=== PATIENT | female | born 1945 | race American Indian/Alaskan Native ===

== ENCOUNTER 2019-09-16 06:28 | Inpatient (IN) | payer MEDICARE ==
[~2019-09-16 06:28] MED LIST: hydrALAZINE 20 MG/1 ML INJ IV ONE
[2019-09-16] MEDS ORDERED: SODIUM CHLORIDE 0.9% 1000 ML 1,000 ML IV SCH (07:15)
[2019-09-16 07:25] LABS: Basophils # (Auto) 0.1 K/mm3 (0.0-0.1); Basophils % (Auto) 0.8 % (0.0-1.8); Eosinophils # (Auto) 0.2 K/mm3 (0.0-0.4); Eosinophils % (Auto) 3.1 % (0.0-4.3); Hematocrit 40.3 % (30.3-42.9); Hemoglobin 13.4 gm/dl (10.1-14.3); Lymphocytes # (Auto) 1.7 K/mm3 (1.2-5.4); Lymphocytes % (Auto) 27.8 % (13.4-35.0); Mean Corpuscular HGB Conc 33 % (30-34); Mean Corpuscular Volume 77 fl (79-97); Monocytes # (Auto) 0.5 K/mm3 (0.0-0.8); Monocytes % (Auto) 8.1 % (0.0-7.3); Platelet Count 155 K/mm3 (140-440); Red Blood Count 5.22 M/mm3 (3.65-5.03)
[2019-09-16 07:35] LABS: INR 0.94 (0.87-1.13)
[2019-09-16 07:36] LABS: Partial Thromboplastin Time 27.3 Sec. (24.2-36.6)
[2019-09-16 07:40] LABS: Calcium 9.3 mg/dL (8.4-10.2)
[2019-09-16] MEDS ORDERED: ceFAZolin/Water 2 GM/20 ML 2 GM/20 ML SYRINGE IV ONE (08:43)
[2019-09-16] MEDS ORDERED: propofoL 200 MG/20 ML VIAL IV ONE ×5 (08:51→08:59)
[2019-09-16] MEDS ORDERED: HYDROmorphone 1 MG/1 ML INJ ONE (08:51)
[2019-09-16] MEDS ORDERED: fentaNYL 100 MCG/2 ML INJ ONE (08:51)
--- NOTE | 2019-09-16 09:03 | Anesthesia Consultation ---
Anesthesia Consult and Med Hx Date of service: 09/16/19 - Airway Anesthetic Teeth Evaluation: Dentures (full upper and lower) ROM Head & Neck: Adequate Mental/Hyoid Distance: Adequate Mallampati Class: Class III Intubation Access Assessment: Possibly Difficult - Pulmonary Exam CTA: Yes - Cardiac Exam Cardiac Exam: RRR - Pre-Operative Health Status ASA Pre-Surgery Classification: ASA3 Proposed Anesthetic Plan: General - Pulmonary Hx Smoking: No Hx Respiratory Symptoms: No Hx Sleep Apnea: No (high JEN screen score) - Cardiovascular System Hx Hypertension: Yes (took antihypertensives this morning) Hx Coronary Artery Disease: Yes (medical management) Hx Heart Attack/AMI: No Hx Percutaneous Transluminal Coronary Angioplasty (PTCA): No Hx Cardia Arrhythmia: No - Central Nervous System CVA: No - Gastrointestinal Hx Gastroesophageal Reflux Disease: No - Endocrine Hx Renal Disease: Yes (CKD) Hx Liver Disease: No Hx Non-Insulin Dependent Diabetes: Yes Hx Thyroid Disease: No - Hematic Hx Anemia: No - Other Systems Hx Cancer: Yes (renal cell carcinoma) Hx Obesity: Yes (BMI 37) - Additional Comments Anesthesia Medical History Comments: No hx anesthetic complications. Off ASA x1.5 wks.
--- NOTE | 2019-09-16 09:03 | Anesthesia Day of Surgery ---
Anesthesia Day of Surgery - Day of Surgery Patient Examined: Yes Patient H&P Reviewed: Yes Patient is NPO: Yes Beta Blockers: Yes
[2019-09-16] MEDS ORDERED: DEXTROSE 5% IN WATER 0 ML IV ONE (09:26)
[2019-09-16] MEDS ORDERED: SODIUM CHLORIDE 0.9% 500 ML 500 ML ONE (09:28)
[2019-09-16] MEDS ORDERED: DEXTROSE 5% IN WATER 1,000 ML IV SCH (10:00)
[2019-09-16] MEDS ORDERED: SUGAMMADEX SODIUM 200 MG/2 ML VIAL IV ONE (12:14)
[2019-09-16] MEDS ORDERED: NALOXONE 0.4 MG/1 ML INJ IV PRN (12:27)
[2019-09-16] MEDS ORDERED: ACETAMINOPHEN 325 MG TAB PO PRN (12:27)
[2019-09-16] MEDS ORDERED: HYDROmorphone 1 MG/1 ML INJ IV PRN (12:27)
[2019-09-16] MEDS ORDERED: ONDANSETRON 4 MG/2 ML INJ IV PRN (12:27)
[2019-09-16] MEDS ORDERED: oxyCODONE /ACETAMINOPHEN 5-325MG TAB PO PRN (12:27)
--- NOTE | 2019-09-16 12:36 | Short Stay Summary ---
Short Stay Documentation Date of service: 09/16/19 Narrative H&P: 74-year-old female with history of coronary artery disease on medical management and chronic kidney disease with known left-sided solid renal mass consistent with left renal cell carcinoma. Scheduled for cryoablation. Risks, benefits, and alternatives discussed. Cardiology evaluation obtained prior to procedure. Will be performed prone with general anesthesia. - History Principal diagnosis: renal cell carcinoma H&P: obtained from office Past Medical History: CAD, cancer, diabetes, hypertension, renal failure (CKD) Social history: no significant social history - Allergies and Medications Current Medications: Allergies propoxyphene [From Darvon] Allergy (Verified 09/16/19 07:12) Vomiting Home Medications Medication Instructions Recorded Confirmed Last Taken Type Aspirin [Aspirin BABY CHEW TAB] 81 mg PO QDAY 09/16/19 09/16/19 1 Week Ago History ~09/09/19 Cholecalciferol (Vitamin D3) 1,000 unit PO QDAY 09/16/19 09/16/19 1 Week Ago History [Vitamin D3 2,000 UNIT CAP] ~09/09/19 Empagliflozin [Jardiance] 25 mg PO DAILY 09/16/19 09/16/19 09/16/19 History Ezetimibe [Zetia] 10 mg PO DAILY 09/16/19 09/16/19 09/15/19 History Ferrous Sulfate [Iron 325 MG] 325 mg PO DAILY 09/16/19 09/16/19 09/15/19 History Glimepiride [Amaryl] 4 mg PO DAILY 09/16/19 09/16/19 09/16/19 History ISOSORBIDE MONOnitrate [Imdur ER] 30 mg PO DAILY 09/16/19 09/16/19 09/16/19 History Losartan Potassium 100 mg PO DAILY 09/16/19 09/16/19 09/16/19 History Metoprolol Xl [Metoprolol 50 mg PO QDAY 09/16/19 09/16/19 09/15/19 History SUCCINATE ER TAB] Simvastatin 40 mg PO DAILY 09/16/19 09/16/19 09/15/19 History Sodium Bicarbonate 650 mg PO BID 09/16/19 09/16/19 09/15/19 History Triamterene/Hydrochlorothiazid 1 each PO DAILY 09/16/19 09/16/19 09/15/19 History [Dyazide 37.5-25 Capsule] cloNIDine [Catapres] 0.2 mg PO DAILY 09/16/19 09/16/19 09/15/19 History Active Medications Sodium Chloride (Nacl 0.9% 1000 Ml) 1,000 mls @ 42 mls/hr IV DIRECT JANIA Last Admin: 09/16/19 08:05 Dose: 42 mls/hr Documented by: Dextrose (D5w) 1,000 mls @ 42 mls/hr IV DIRECT JANIA - Physical exam General appearance: no acute distress Lungs: Normal air movement Gastrointestinal: normal - Brief post op/procedure progress note Date of procedure: 09/16/19 Pre-op diagnosis: Left renal cell carincoma Post-op diagnosis: same Procedure: CT guided placement of 3 CX 1.5 IceSphere probes in the left renal mass measuring 2.4 cm in size Cryoablation of the left renal mass with 2 freeze cycles and a cauterization cycle Anesthesia: GETA Surgeon: MARIA DE JESUS KATHLEEN Estimated blood loss: minimal Condition: stable - Hospital course Hospital course: Tolerated procedure well. Sent to PACU and then to telemetry. Patient tolerated the procedure well with minimal postprocedural discomfort. Doing well with stable blood pressure and vitals. Hemoglobin with minimal change. Patient's creatinine improved after procedure, probably secondary to hydration as she was likely mildly dehydrated beforehand. At time of discharge patient is alert and oriented x3 with no significant abdominal pain. No hematuria. Will follow-up in 2 weeks. Will contact us if there is any issues that arise. - Disposition Condition at discharge: Stable Disposition: - TO HOME OR SELFCARE - Discharge Diagnoses (1) Renal cell carcinoma Status: Acute (2) CKD (chronic kidney disease) stage 3, GFR 30-59 ml/min Status: Acute (3) Diabetes Status: Acute (4) HTN (hypertension) Status: Acute Qualifiers: Hypertension type: essential hypertension Qualified Code(s): I10 - Essential (primary) hypertension (5) Obesity hypoventilation syndrome Status: Acute Short Stay Discharge Plan Activity: advance as tolerated Weight Bearing Status: Weight Bear as Tolerated Diet: diabetic Wound: keep clean and dry, other (no excercise or strenous activity until I see you back in the office in 2 weeks.) Follow up with: PRIMARY CARE, [Primary Care Provider] - 7 Days Prescriptions: Ciprofloxacin HCl [Ciprofloxacin TAB] 500 mg PO Q12HR #14 tab HYDROcodone/APAP 5-325 [[place] 5/325] 1 each PO Q6HR PRN #25 tablet PRN Reason: Pain
[2019-09-16] MEDS ORDERED: HYDROCHLOROTHIAZID PO SCH (12:45)
[2019-09-16] MEDS ORDERED: TRIAMTERENE PO SCH (12:45)
[2019-09-16] MEDS ORDERED: fentaNYL 100 MCG/2 ML INJ IV PRN (12:47)
--- NOTE | 2019-09-16 12:52 | Operative Report ---
Operative Report Operative Report: EXAM: 1. CT-guided placement of 3 separate cryoablation probes in the left renal cell carcinoma 2. Cryoablation of the left renal cell carcinoma with 2 10-minute freeze cycles 10-minute freeze cycle, 7-minute passive thaw cycle, 10-minute freeze cycle, 2- minute active thaw cycle and 2-minute passive thaw cycle with subsequent cauterization cycle DATE: 09/16/2019 AIRCRAFT BODY REPAIRER: MARIA DE JESUS KATHLEEN MD INDICATION: Left renal cell carcinoma with chronic kidney disease and coronary artery disease with evaluation for cryoablation. MEDICATIONS: Please see nursing report for full details. DEVICES: CX 1.5 IceSphere Cryoablation probes (3) CONTRAST: None PROCEDURE: The risks, benefits, and alternatives were discussed with the patient; written informed consent was obtained. The patient was brought to the CT scanner and intubated with general anesthesia and placed in a prone position on the CT gantry. Vacuum Drum Drier Operator imaging was obtained and dental laboratory assistant CT was obtained. Part of the area of approach was obscured by the left ribs and therefore the patient's left flank was elevated further and repeated dental laboratory assistant imaging and dental laboratory assistant CT was obtained. The left ribs were no longer preventing the approach to the left renal mass. The left renal mass was identified under CT and 3 areas were marked using the radiopaque grid. The patient was then prepped and draped in a sterile fashion. 22-gauge Chiba finder needle was then used to salazar the most inferior aspect of the solid renal lesion. After this was performed, the first cryoablation probe was then passed into the solid renal lesion using a tandem trocar approach and multiple acquisitions were obtained until the cryoablation probe was in optimal position and then it was stuck in place using the stuck freeze feature. 22-gauge Chiba finder needle was then used to salazar the the superior medial and lateral aspect of the solid renal lesion. After this was performed, the second and third cryoablation probe was then passed into the solid renal lesion using a tandem trocar approach and multiple acquisitions were obtained until the cryoablation probes were in optimal position and then it each was stuck in place using the stuck freeze feature. Careful attention was made to abut but not penetrate the collecting system. After the needles were passed into the appropriate position within the left solid renal mass, the freeze feature was activated and multiple acquisitions were obtained during the freeze cycle to ensure adequate coverage of the renal mass without damage to the surrounding structures. After this 10-minute freeze cycle was obtained, a 7-minute passive thaw cycle was obtained and then a repeated 10-minute freeze cycle was obtained with multiple acquisitions obtained during the freeze cycle to ensure adequate coverage. 2-minute active thaw cycle in 2-minute passive thaw cycle was then obtained and cauterization cycle was activated. After this was performed, the probes were gently rotated until they could be easily removed. Repeated CT was performed and again in 5 minutes was re- performed demonstrating no hematoma. Steri-Strips and 4 x 4's were then applied to the probe entry sites. The patient tolerated the procedure well. No immediate postprocedural complication. FINDINGS: Successful left cryoablation of the left renal cell carcinoma. There is full coverage of the ice ball of the solid renal mass with a 5-10 mm margin consistent with an appropriate cryoablation which should completely treat the solid renal mass. IMPRESSION: Successful cryoablation of the left renal mass compatible with renal cell carcinoma.
[2019-09-16] MEDS ORDERED: SUCCINYLCHOLINE CHLORIDE 200 MG/10 ML INJ MDV ONE (13:00)
[2019-09-16] MEDS ORDERED: LIDOCAINE MPF (2%) 20 MG/1 ML VIAL 5 ML ONE (13:00)
[2019-09-16] MEDS ORDERED: hydrALAZINE 20 MG/1 ML INJ IV PRN (13:00)
[2019-09-16] MEDS ORDERED: hydrALAZINE 20 MG/1 ML INJ ONE (13:01)
--- NOTE | 2019-09-16 13:05 | Event Note ---
Date: 09/16/19 Patient tolerated cryoablation without issue. She has no flank pain. Her hemodynamics are stable. Blood pressure slightly elevated. Discussed with nurse to start p.o. blood pressure medicines and to provide hydralazine IV in the interim. Consulted medicine for medical management. Should keep blood pressure below 160 in the postoperative period. Consulted medicine for medical assistance with patient's medical issues including hypertension.
[2019-09-16] MEDS ORDERED: hydrALAZINE 20 MG/1 ML INJ IV ONE (13:30)
--- NOTE | 2019-09-16 14:09 | Post Anesthesia Evaluation ---
- Post Anesthesia Evaluation Patient Participated: Yes Airway Patent: Yes Stable Respiratory Function: Yes Nausea/Vomiting: No Temp > 96.8F: Yes Pain Manageable: Yes Adequeate Hydration: Yes Anesthesia Complications: No
[2019-09-16] MEDS: DOCUSATE SODIUM 100 MG CAP PO SCH ×2 (16:16→21:37)
[2019-09-16] MEDS: FERROUS SULFATE 325 MG TAB PO SCH (16:17)
[2019-09-16] MEDS: METOPROLOL SUCCINATE XL 50 MG TAB PO SCH (16:17)
[2019-09-16] MEDS: cloNIDine 0.2 MG TAB PO SCH (16:17)
[2019-09-16] MEDS: SODIUM BICARBONATE 650 MG TAB PO SCH ×2 (16:17→21:36)
[2019-09-16] MEDS: HYDROcodone/ACETAMINOPHEN 5-325 MG TAB PO PRN ×2 (16:18→21:37)
--- NOTE | 2019-09-16 19:52 | Consultation ---
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 Consult placed by Dr. Kathleen for Medical management. Patient seen and evaluated upon arrival to her room. Patient resting comfortably in bed. Patient denies pain. No reported nursing events. Past History Past Medical History: CAD, cancer, diabetes, hypertension, renal failure (CKD) Social history: single Family history: diabetes, hypertension Medications and Allergies Allergies Allergy/AdvReac Type Severity Reaction Status Date / Time propoxyphene [From Darvon] Allergy Vomiting Verified 09/16/19 07:12 Home Medications Medication Instructions Recorded Confirmed Last Taken Type Aspirin [Aspirin BABY CHEW TAB] 81 mg PO QDAY 09/16/19 09/16/19 1 Week Ago History ~09/09/19 Cholecalciferol (Vitamin D3) 1,000 unit PO QDAY 09/16/19 09/16/19 1 Week Ago History [Vitamin D3 2,000 UNIT CAP] ~09/09/19 Empagliflozin [Jardiance] 25 mg PO DAILY 09/16/19 09/16/19 09/16/19 History Ezetimibe [Zetia] 10 mg PO DAILY 09/16/19 09/16/19 09/15/19 History Ferrous Sulfate [Iron 325 MG] 325 mg PO DAILY 09/16/19 09/16/19 09/15/19 History Glimepiride [Amaryl] 4 mg PO DAILY 09/16/19 09/16/19 09/16/19 History ISOSORBIDE MONOnitrate [Imdur ER] 30 mg PO DAILY 09/16/19 09/16/19 09/16/19 History Losartan Potassium 100 mg PO DAILY 09/16/19 09/16/19 09/16/19 History Metoprolol Xl [Metoprolol 50 mg PO QDAY 09/16/19 09/16/19 09/15/19 History SUCCINATE ER TAB] Simvastatin 40 mg PO DAILY 09/16/19 09/16/19 09/15/19 History Sodium Bicarbonate 650 mg PO BID 09/16/19 09/16/19 09/15/19 History Triamterene/Hydrochlorothiazid 1 each PO DAILY 09/16/19 09/16/19 09/15/19 History [Dyazide 37.5-25 Capsule] cloNIDine [Catapres] 0.2 mg PO DAILY 09/16/19 09/16/19 09/15/19 History Active Meds: Active Medications Acetaminophen (Tylenol) 650 mg PO Q4H PRN PRN Reason: Pain MILD(1-3)/Fever >100.5/REEDER Acetaminophen/Hydrocodone Bitart ([place] 5/325) 2 each PO Q6H PRN PRN Reason: Pain, Moderate (4-6) Last Admin: 09/16/19 16:18 Dose: 2 each Documented by: Cholecalciferol (Vitamin D3) 1,000 unit PO QDAY [facility] Clonidine HCl (Catapres) 0.2 mg PO DAILY [facility] Last Admin: 09/16/19 16:17 Dose: 0.2 mg Documented by: Docusate Sodium (Colace) 100 mg PO BID [facility] Last Admin: 09/16/19 16:16 Dose: 100 mg Documented by: Ezetimibe (Zetia) 10 mg PO DAILY [facility] Fentanyl (Sublimaze) 50 mcg IV Q5MIN PRN PRN Reason: Pain , Severe (7-10) Stop: 09/16/19 23:00 Ferrous Sulfate (Feosol) 325 mg PO DAILY [facility] Last Admin: 09/16/19 16:17 Dose: 325 mg Documented by: Glimepiride (Amaryl) 4 mg PO QAMDIAB [facility] Hydromorphone HCl (Dilaudid) 0.5 mg IV Q3H PRN PRN Reason: Pain , Severe (7-10) Sodium Chloride (Nacl 0.9% 1000 Ml) 1,000 mls @ 42 mls/hr IV DIRECT [facility] Last Admin: 09/16/19 08:05 Dose: 42 mls/hr Documented by: Dextrose (D5w) 1,000 mls @ 42 mls/hr IV DIRECT [facility] Last Admin: 09/16/19 16:26 Dose: 42 mls/hr Documented by: Isosorbide Mononitrate (Imdur) 30 mg PO DAILY [facility] Losartan Potassium (Cozaar) 50 mg PO QDAY [facility] Metoprolol Succinate (Metoprolol Xl) 50 mg PO QDAY [facility] Last Admin: 09/16/19 16:17 Dose: 50 mg Documented by: Miscellaneous Medication (Empagliflozin [Jardiance]) 25 mg PO DAILY [facility] Naloxone HCl (Naloxone) 0.1 mg IV Q2MIN PRN PRN Reason: Res Rate </= 8 or 02 SAT < 92% Ondansetron HCl (Zofran) 4 mg IV Q4H PRN PRN Reason: Nausea Oxycodone/Acetaminophen (Percocet 5/325) 1 tab PO Q6H PRN PRN Reason: Pain , Severe (7-10) Pravastatin Sodium (Pravachol) 80 mg PO QHS [facility] Sodium Bicarbonate (Sodium Bicarbonate) 650 mg PO BID [facility] Last Admin: 09/16/19 16:17 Dose: 650 mg Documented by: Triamterene/HCTZ (Maxzide-25) 1 each PO QAM [facility] Review of Systems Constitutional: no weight loss, no weight gain, no fever, no chills Ears, nose, mouth and throat: no ear pain, no ear discharge, no nose pain, no nasal congestion Breasts: no change in shape, no swelling, no mass Cardiovascular: no chest pain, no orthopnea, no rapid/irregular heart beat, no edema, no lightheadedness Respiratory: no cough, no cough with sputum, no excessive sputum, no hemoptysis Gastrointestinal: no abdominal pain, no nausea, no vomiting, no diarrhea, no change in bowel habits Genitourinary Female: no dyspareunia, no dysmenorrhea, no flank pain, no men orrhagia, no urgency, no stress incontinence, no post void dribbling, no incomplete emptying, no urge incontinence, no difficulty voiding Rectal: no pain, no incontinence, no bleeding Musculoskeletal: no neck stiffness, no neck pain, no arm numbness/tingling, no shooting leg pain, no leg numbness/tingling Integumentary: no rash, no pruritis, no redness, no sores, no jaundice, no boils Neurological: no head injury, no transient paralysis, no weakness, no numbness, no seizures, no syncope, no lack of coordination Psychiatric: no anxiety, no memory loss, no change in sleep habits, no sleep disturbances, no insomnia, no hypersomnia, no change in appetite, no change in libido Endocrine: no cold intolerance, no heat intolerance, no excessive thirst, no polydipsia, no nocturia, no excessive sweating Hematologic/Lymphatic: no easy bruising, no easy bleeding, no lymphadenopathy, no lymphedema Allergic/Immunologic: no urticaria, no allergic rhinitis, no persistent infections Exam - Constitutional Vitals: Temp Pulse Resp BP Pulse Ox 98 F 68 24 150/76 96 09/16/19 13:45 09/16/19 16:17 09/16/19 13:45 09/16/19 16:17 09/16/19 13:45 General appearance: Present: no acute distress, well-nourished - EENT Eyes: Present: PERRL ENT: hearing intact, clear oral mucosa - Neck Neck: Present: supple, normal ROM - Respiratory Respiratory effort: normal Respiratory: bilateral: CTA - Cardiovascular Heart Sounds: Present: S1 & S2. Absent: rub, click - Extremities Extremities: pulses symmetrical, No edema Peripheral Pulses: within normal limits - Abdominal General gastrointestinal: Present: soft, non-tender, non-distended, normal bowel sounds Female genitourinary: Present: normal - Integumentary Integumentary: Present: clear, warm, dry - Musculoskeletal Musculoskeletal: gait normal, strength equal bilaterally - Psychiatric Psychiatric: appropriate mood/affect, intact judgment & insight - Neurologic Neurologic: CNII-XII intact, moves all extremities Results - Labs CBC & Chem 7: 09/16/19 07:15 09/16/19 07:15 Labs: Abnormal lab results 09/16/19 09/16/19 09/16/19 Range/Units 07:15 07:15 12:59 RBC 5.22 H (3.65-5.03) M/mm3 MCV 77 L (79-97) fl MCH 26 L (28-32) pg [place] % (Auto) 8.1 H (0.0-7.3) % BUN 29 H (7-17) mg/dL Creatinine 1.8 H (0.7-1.2) mg/dL Glucose 177 H (65-100) mg/dL POC Glucose 162 H (70-105) Assessment and Plan - Patient Problems (1) HTN (hypertension) Current Visit: Yes Status: Acute Qualifiers: Hypertension type: essential hypertension Qualified Code(s): I10 - Essential (primary) hypertension Plan to address problem: Monitor blood pressure every shift, continue prehospital antihypertensive therapy. (2) Diabetes Current Visit: Yes Status: Acute Plan to address problem: Consistent carbohydrate diet, continue oral antihyperglycemic medication. Consistent carbohydrate diet (3) Obesity hypoventilation syndrome Current Visit: Yes Status: Acute Plan to address problem: Submental oxygen, incentive spirometry, early ambulation, supportive care.
[2019-09-17 06:03] LABS: Basophils % (Auto) 0.3 % (0.0-1.8); Eosinophils # (Auto) 0.1 K/mm3 (0.0-0.4); Eosinophils % (Auto) 0.9 % (0.0-4.3); Hematocrit 39.6 % (30.3-42.9); Hemoglobin 12.7 gm/dl (10.1-14.3); Lymphocytes # (Auto) 1.3 K/mm3 (1.2-5.4); Lymphocytes % (Auto) 13.5 % (13.4-35.0); Mean Corpuscular HGB Conc 32 % (30-34); Mean Corpuscular Volume 78 fl (79-97); Monocytes # (Auto) 0.6 K/mm3 (0.0-0.8); Monocytes % (Auto) 6.6 % (0.0-7.3); Platelet Count 133 K/mm3 (140-440); Red Blood Count 5.05 M/mm3 (3.65-5.03); Red Cell Distribution Width 15.3 % (13.2-15.2)
[2019-09-17] MEDS: hydrALAZINE 20 MG/1 ML INJ IV ONE ×2 (06:23→07:26)
[2019-09-17] MEDS ORDERED: GLIMEPIRIDE 4 MG TAB PO SCH (08:00)
[2019-09-17 08:17] VITALS: BP 164/71
[2019-09-17] MEDS: cloNIDine 0.2 MG TAB PO SCH (09:40)
[2019-09-17] MEDS: SODIUM BICARBONATE 650 MG TAB PO SCH (09:40)
[2019-09-17] MEDS: DOCUSATE SODIUM 100 MG CAP PO SCH (09:40)
[2019-09-17] MEDS: FERROUS SULFATE 325 MG TAB PO SCH (09:40)
[2019-09-17] MEDS: METOPROLOL SUCCINATE XL 50 MG TAB PO SCH (09:40)
--- NOTE | 2019-09-17 09:45 | Event Note ---
Date: 09/17/19 Progress note today listed under short stay note.
[2019-09-17] MEDS ORDERED: CHOLECALCIFEROL (VIT D3) 1000 UNIT (25 mcg) TAB PO SCH (10:00)
[2019-09-17] MEDS ORDERED: levoFLOXacin 500 MG TAB PO SCH (10:00)
[2019-09-17] MEDS ORDERED: [UNRECOGNIZED DRUG - OTHER] PO SCH (10:00)
[2019-09-17] MEDS ORDERED: LOSARTAN 50 MG TAB PO SCH (10:00)
[2019-09-17] MEDS ORDERED: EZETIMIBE 10 MG TAB PO SCH (10:00)
[2019-09-17] MEDS ORDERED: CHOLECALCIFEROL 1000 UNIT PO SCH (10:00)
[2019-09-17] MEDS ORDERED: NON-FORMULARY EACH (Losartan Potassium [Losartan Potassium] 100 MG) PO SCH (10:00)
[2019-09-17] MEDS ORDERED: NON-FORMULARY EACH (Simvastatin [Simvastatin] 40 MG) PO SCH (10:00)
[2019-09-17] MEDS ORDERED: NON-FORMULARY EACH (Empagliflozin [Jardiance] 25 MG) PO SCH (12:45)
[2019-09-17] MEDS ORDERED: TRIAMTER/HCTZ 37.5-25 MG TAB PO SCH (13:30)
[2019-09-17] MEDS ORDERED: PRAVASTATIN 80 MG TAB PO SCH (22:00)
--- NOTE | 2019-09-28 13:24 | Cat Scan Report ---
PLEASE SEE OPERATIVE NOTE CREATED ON 09/16/2019.
== END 2019-09-17 11:04 | disposition home or self-care (01) | DRG 656 ==
LOC: CATHLABREC 06:28 → EDSTATUS 08:00 → 4A 12:27
PROVIDERS: ADMIT Radiology Diagnostic Radiology; ATTEND Radiology Diagnostic Radiology
PROC: 0T513ZZ Destruction of Left Kidney, Percutaneous Approach (ICD-10-PCS; principal; 2019-09-16)
DX: C64.2 Malignant neoplasm of left kidney, except renal pelvis (principal); N17.0 Acute kidney failure with tubular necrosis; E66.2 Morbid (severe) obesity with alveolar hypoventilation; N18.3 Chronic kidney disease, stage 3 (moderate); I12.9 Hypertensive chronic kidney disease with stage 1 through stage 4 chronic kidney disease, or unspecified chronic kidney disease; E11.22 Type 2 diabetes mellitus with diabetic chronic kidney disease; Z60.2 Problems related to living alone; I25.10 Atherosclerotic heart disease of native coronary artery without angina pectoris; Z68.38 Body mass index [BMI] 38.0-38.9, adult; Z82.49 Family history of ischemic heart disease and other diseases of the circulatory system; Z83.3 Family history of diabetes mellitus; Z79.82 Long term (current) use of aspirin; Z79.899 Other long term (current) drug therapy; Z85.89 Personal history of malignant neoplasm of other organs and systems; Z03.818 Encounter for observation for suspected exposure to other biological agents ruled out
CPT/HCPCS: 36415; 50593; 77013; 80048; 82962; 85025; 85610; 85730; G0378; J0330; J0360; J0690; J1170; J2704; J3010; J7030; J7040; J7070; U0003-CS

== ENCOUNTER 2020-01-27 18:35 | Observation (INO) | payer MEDICARE ==
[2020-01-27 19:17] LABS: Basophils # (Auto) 0.1 K/mm3 (0.0-0.1); Eosinophils # (Auto) 0.1 K/mm3 (0.0-0.4); Eosinophils % (Auto) 1.3 % (0.0-4.3); Hematocrit 37.1 % (30.3-42.9); Hemoglobin 12.3 gm/dl (10.1-14.3); Lymphocytes # (Auto) 1.6 K/mm3 (1.2-5.4); Lymphocytes % (Auto) 16.3 % (13.4-35.0); Mean Corpuscular HGB Conc 33 % (30-34); Mean Corpuscular Volume 79 fl (79-97); Monocytes % (Auto) 10.2 % (0.0-7.3); Platelet Count 175 K/mm3 (140-440); Red Blood Count 4.68 M/mm3 (3.65-5.03); Red Cell Distribution Width 15.2 % (13.2-15.2)
--- NOTE | 2020-01-27 19:34 | XRay Report ---
CHEST 2 VIEWS INDICATION / CLINICAL INFORMATION: Chest Pain. COMPARISON: None available. FINDINGS: SUPPORT DEVICES: None. HEART / MEDIASTINUM: No significant abnormality. LUNGS / PLEURA: No significant pulmonary or pleural abnormality. No pneumothorax. ADDITIONAL FINDINGS: No significant additional findings. IMPRESSION: 1. No acute findings. Signer Name: Srikanth Lundberg MD Signed: 01/27/2020 7:29 PM Workstation Name: [id number]
[2020-01-27 19:44] LABS: Alanine Aminotransferase 7 units/L (7-56); Albumin 3.5 g/dL (3.9-5); BUN/Creatinine Ratio 16; Blood Urea Nitrogen 33 mg/dL (7-17); Calcium 9.3 mg/dL (8.4-10.2); Hemolysis Index 13
--- NOTE | 2020-01-27 19:54 | Event Note ---
Date: 01/27/20 74-year-old female with a history of hypertension and obesity, renal cell carcinoma, typically follows with [facility] cardiology, presents to the ER with a complaint of a few days intermittent burning substantial/epigastric chest discomfort, which occasionally radiates to the back, without vomiting, diaphoresis or exertional shortness of breath. She is chest pain-free at this time. EKG abnormal, sinus rhythm, normal axis, normal intervals, poor R wave progression, Q waves noted in the inferior leads, no obvious reciprocal changes noted, and nonspecific ST abnormality in the inferior leads. The EKG does not represent an acute STEMI. The EKG was transmitted to our [employer], Dr Aldana, who also personally reviewed the patient's EKG, we both agree that the patient does not meet criteria for emergent Travel Agent activation. Charge nurses informed that patient should be brought back ANURAG, she will be initiated on her chest pain pathway/protocol, and plan is to admit the patient to the medical service for accelerated cardiac risk ratification once initial diagnostics have resulted. Vital Signs 01/27/20 18:54 Temperature 97.8 F Pulse Rate 70 Respiratory 20 Rate Blood Pressure 142/67 [Right] O2 Sat by Pulse 100 Oximetry
[2020-01-27] MEDS ORDERED: FAMOTIDINE 20 MG TAB PO ONE (19:58)
[2020-01-27] MEDS ORDERED: NITROGLYCERIN 0.4 MG TAB SUBL SL PRN (19:58)
[2020-01-27] MEDS ORDERED: ASPIRIN 81 MG TAB CHEW PO ONE (19:58)
--- NOTE | 2020-01-27 20:00 | Emergency Department Report ---
ED Chest Pain HPI - General Chief Complaint: Chest Pain Stated Complaint: CHEST PAIN PUI?: No Time Seen by Provider: 01/27/20 19:57 Source: patient, RN notes reviewed, old records reviewed Mode of arrival: Ambulatory Limitations: No Limitations - History of Present Illness Initial Comments: The patient was evaluated in the emergency department for symptoms described in the history of present illness. He/she was evaluated in the context of the global COVID-19 pandemic, which necessitated consideration that the patient might be at risk for infection with the virus that causes COVID-19. Institutional protocols and algorithms that pertain to the evaluation of patients at risk for COVID-19 are in a state of rapid change based on information released by regulatory bodies including the CDC and federal and state organizations. These policies and algorithms were followed during the patient's care in the emergency department. Please note that these policies, procedures and recommendations changed on a rapid basis. Cardiology: [facility] cardiology Patient is a pleasant 74-year-old female, with a history of renal insufficiency, diabetes, hypertension and high cholesterol. She presents to the ER today with a complaint of intermittent substernal and epigastric burning pain, which radiates to the back, for the past few days, without vomiting, diaphoresis or exertional shortness of breath. She believes that she had a stress test within the past year, which was "negative." She denies headache, neck pain, abdominal pain, vomiting blood, defecating blood, urinary symptoms, denies COVID symptomatology, and denies DVT, pulmonary embolism risk factors. Her pain is resolved at this time. MD Complaint: chest pain, other -: Gradual, days(s) Pain Location: substernal, epigastric Pain Radiation: back Severity scale (0 -10): 6 Quality: aching, other (Burning, pressure) Consistency: intermittent Improves With: nothing Worsens With: nothing re: denies: nausea, vomting, diaphoresis, dyspnea, sense of impending doom Aspirin use within the Past 7 Days: (1) Yes - Related Data Home Medications Medication Instructions Recorded Confirmed Last Taken Aspirin [Aspirin BABY CHEW TAB] 81 mg PO QDAY 09/16/19 09/16/19 1 Week Ago ~09/09/19 Cholecalciferol (Vitamin D3) 1,000 unit PO QDAY 09/16/19 09/16/19 1 Week Ago [Vitamin D3 2,000 UNIT CAP] ~09/09/19 Empagliflozin [Jardiance] 25 mg PO DAILY 09/16/19 09/16/19 09/16/19 Ezetimibe [Zetia] 10 mg PO DAILY 09/16/19 09/16/19 09/15/19 Ferrous Sulfate [Iron 325 MG] 325 mg PO DAILY 09/16/19 09/16/19 09/15/19 Glimepiride [Amaryl] 4 mg PO DAILY 09/16/19 09/16/19 09/16/19 ISOSORBIDE MONOnitrate [Imdur ER] 30 mg PO DAILY 09/16/19 09/16/19 09/16/19 Losartan Potassium 100 mg PO DAILY 09/16/19 09/16/19 09/16/19 Metoprolol Xl [Metoprolol 50 mg PO QDAY 09/16/19 09/16/19 09/15/19 SUCCINATE ER TAB] Simvastatin 40 mg PO DAILY 09/16/19 09/16/19 09/15/19 Sodium Bicarbonate 650 mg PO BID 09/16/19 09/16/19 09/15/19 Triamterene/Hydrochlorothiazid 1 each PO DAILY 09/16/19 09/16/19 09/15/19 [Dyazide 37.5-25 Capsule] cloNIDine [Catapres] 0.2 mg PO DAILY 09/16/19 09/16/19 09/15/19 Previous Rx's Medication Instructions Recorded Last Taken Type Ciprofloxacin HCl [Ciprofloxacin 500 mg PO Q12HR #14 tab 09/17/19 Unknown Rx TAB] HYDROcodone/APAP 5-325 [[place] 1 each PO Q6HR PRN #25 tablet 09/17/19 Unknown Rx 5/325] Allergies Allergy/AdvReac Type Severity Reaction Status Date / Time propoxyphene [From Darvon] Allergy Vomiting Verified 09/16/19 07:12 Heart Score - HEART Score History: Moderately suspicious EKG: Non-specific Age: > 65 Risk factors: 1-2 risk factors Troponin: < normal limit HEART Score: 5 - Critical Actions Critical Actions: 4-6 pts:12-16.6% risk of adverse cardiac event. Should be a dmitted ED Review of Systems ROS: Stated complaint: CHEST PAIN Other details as noted in HPI Constitutional: denies: diaphoresis Eyes: denies: vision change ENT: denies: epistaxis Respiratory: denies: cough Cardiovascular: chest pain Gastrointestinal: abdominal pain. denies: nausea, vomiting, hematemesis, me amrik, hematochezia Genitourinary: denies: dysuria Musculoskeletal: back pain Neurological: denies: weakness Hematological/Lymphatic: denies: easy bleeding ED Past Medical Hx - Past Medical History Hx Hypertension: Yes (took antihypertensives this morning) Hx Heart Attack/AMI: No Hx Diabetes: Yes Hx Liver Disease: No Hx Renal Disease: Yes (CKD) Hx Arthritis: Yes - Surgical History Hx Cholecystectomy: Yes Hx Appendectomy: Yes - Social History Smoking Status: Never Smoker - Medications Home Medications: Home Medications Medication Instructions Recorded Confirmed Last Taken Type Aspirin [Aspirin BABY CHEW TAB] 81 mg PO QDAY 09/16/19 09/16/19 1 Week Ago History ~09/09/19 Cholecalciferol (Vitamin D3) 1,000 unit PO QDAY 09/16/19 09/16/19 1 Week Ago History [Vitamin D3 2,000 UNIT CAP] ~09/09/19 Empagliflozin [Jardiance] 25 mg PO DAILY 09/16/19 09/16/19 09/16/19 History Ezetimibe [Zetia] 10 mg PO DAILY 09/16/19 09/16/19 09/15/19 History Ferrous Sulfate [Iron 325 MG] 325 mg PO DAILY 09/16/19 09/16/19 09/15/19 History Glimepiride [Amaryl] 4 mg PO DAILY 09/16/19 09/16/19 09/16/19 History ISOSORBIDE MONOnitrate [Imdur ER] 30 mg PO DAILY 09/16/19 09/16/19 09/16/19 History Losartan Potassium 100 mg PO DAILY 09/16/19 09/16/19 09/16/19 History Metoprolol Xl [Metoprolol 50 mg PO QDAY 09/16/19 09/16/19 09/15/19 History SUCCINATE ER TAB] Simvastatin 40 mg PO DAILY 09/16/19 09/16/19 09/15/19 History Sodium Bicarbonate 650 mg PO BID 09/16/19 09/16/19 09/15/19 History Triamterene/Hydrochlorothiazid 1 each PO DAILY 09/16/19 09/16/19 09/15/19 History [Dyazide 37.5-25 Capsule] cloNIDine [Catapres] 0.2 mg PO DAILY 09/16/19 09/16/19 09/15/19 History Ciprofloxacin HCl [Ciprofloxacin 500 mg PO Q12HR #14 tab 09/17/19 Unknown Rx TAB] HYDROcodone/APAP 5-325 [[place] 1 each PO Q6HR PRN #25 tablet 09/17/19 Unknown Rx 5/325] ED Physical Exam - General Limitations: No Limitations General appearance: alert, in no apparent distress - Head Head exam: Present: atraumatic, normocephalic - Eye Eye exam: Present: normal appearance, EOMI. Absent: nystagmus - ENT ENT exam: Present: normal exam, normal orophraynx, mucous membranes moist, normal external ear exam - Neck Neck exam: Present: normal inspection, full ROM. Absent: tenderness, meningism us - Respiratory Respiratory exam: Present: normal lung sounds bilaterally. Absent: respiratory distress, wheezes, rales, rhonchi, stridor, chest wall tenderness, decreased breath sounds - Cardiovascular Cardiovascular Exam: Present: regular rate, normal rhythm, normal heart sounds. Absent: irregular rhythm, systolic murmur, diastolic murmur, rubs, gallop - GI/Abdominal GI/Abdominal exam: Present: soft. Absent: distended, tenderness, guarding, rebound, rigid, pulsatile mass - Extremities Exam Extremities exam: Present: normal inspection, full ROM, pedal edema, other (2+ pulses noted in the bilateral upper and lower extremities. There is no palpable cord. negative Homans sign. Muscular compartments are soft. The pelvis is stable.). Absent: calf tenderness - Back Exam Back exam: Present: normal inspection, full ROM. Absent: tenderness, CVA tenderness (R), CVA tenderness (L), paraspinal tenderness, vertebral tenderness - Neurological Exam Neurological exam: Present: alert, oriented X3, normal gait, other (No facial droop. Tongue midline. Extraocular movements intact bilaterally. Facial sensation intact to light touch in V1, V2, V3 distribution bilaterally. 5 and a 5 strength in 4 extremities. Sensation intact to light touch in 4 extre mities.). Absent: motor sensory deficit - Psychiatric Psychiatric exam: Present: normal affect, normal mood - Skin Skin exam: Present: warm, dry, intact, normal color. Absent: rash ED Course Vital Signs 01/27/20 01/27/20 01/27/20 18:54 20:08 20:15 Temperature 97.8 F Pulse Rate 70 70 67 Respiratory 20 14 18 Rate Blood Pressure 139/77 Blood Pressure 142/67 [Right] O2 Sat by Pulse 100 98 Oximetry 01/27/20 20:31 Temperature Pulse Rate 66 Respiratory 14 Rate Blood Pressure 124/73 Blood Pressure [Right] O2 Sat by Pulse 97 Oximetry - Reevaluation(s) Reevaluation #1: 01/27/20 20:37 Renal insufficiency appears to be chronic. Reevaluation #2: 01/27/20 21:06 Patient is resting comfortably on stretcher. EKG #2 is unchanged from prior. The EKG is not a STEMI. ABDOULAYE score - Abdoulaye Score Age > 65: (1) Yes Aspirin use within the Past 7 Days: (1) Yes 3 or more CAD Risk Factors: (1) Yes 2 or more Angina events in past 24 hrs: (1) Yes Known CAD with more than 50% Stenosis: (0) No Elevated Cardiac Markers: (0) No ST Deviation Greater than 0.5mm: (0) No ABDOULAYE Score: 4 ED Medical Decision Making - Lab Data Result diagrams: 01/27/20 19:05 01/27/20 19:05 Vital Signs 01/27/20 18:54 Temperature 97.8 F Pulse Rate 70 Respiratory 20 Rate Blood Pressure 142/67 [Right] O2 Sat by Pulse 100 Oximetry Lab Results 01/27/20 01/27/20 01/27/20 Range/Units 19:05 19:05 20:00 WBC 9.7 (4.5-11.0) K/mm3 RBC 4.68 (3.65-5.03) M/mm3 Hgb 12.3 (10.1-14.3) gm/dl Hct 37.1 (30.3-42.9) % MCV 79 (79-97) fl MCH 26 L (28-32) pg MCHC 33 (30-34) % RDW 15.2 (13.2-15.2) % Plt Count 175 (140-440) K/mm3 Lymph % (Auto) 16.3 (13.4-35.0) % [place] % (Auto) 10.2 H (0.0-7.3) % Eos % (Auto) 1.3 (0.0-4.3) % Baso % (Auto) 1.0 (0.0-1.8) % Lymph # (Auto) 1.6 (1.2-5.4) K/mm3 [place] # (Auto) 1.0 H (0.0-0.8) K/mm3 Eos # (Auto) 0.1 (0.0-0.4) K/mm3 Baso # (Auto) 0.1 (0.0-0.1) K/mm3 Seg Neutrophils % 71.2 H (40.0-70.0) % Seg Neutrophils # 6.9 (1.8-7.7) K/mm3 PT 13.5 (12.2-14.9) Sec. INR 1.02 (0.87-1.13) Sodium 136 L (137-145) mmol/L Potassium 4.7 (3.6-5.0) mmol/L Chloride 100.0 (98-107) mmol/L Carbon Dioxide 21 L (22-30) mmol/L Anion Gap 20 mmol/L BUN 33 H (7-17) mg/dL Creatinine 2.1 H (0.6-1.2) mg/dL Estimated GFR 28 ml/min BUN/Creatinine Ratio 16 % Glucose 181 H (65-100) mg/dL Calcium 9.3 (8.4-10.2) mg/dL Total Bilirubin 0.40 (0.1-1.2) mg/dL AST 11 (5-40) units/L ALT 7 (7-56) units/L Alkaline Phosphatase 56 (35-129) units/L Troponin T < 0.010 (0.00-0.029) ng/mL Total Protein 7.3 (6.3-8.2) g/dL Albumin 3.5 L (3.9-5) g/dL Albumin/Globulin Ratio 0.9 % - EKG Data -: EKG Interpreted by Hi - EKG Data 01/27/20 20:33 There is no prior EKG available for comparison. Normal sinus rhythm, normal axis, normal intervals, Q waves noted in the inferior leads, nonspecific ST abnormality inferior leads, motion artifact in the lateral leads. This EKG is abnormal. This EKG is not a STEMI. EKG transmitted to child and youth program assistant, Dr. Brittany Aldana, who agrees that this EKG does not meet criteria for STEMI - Radiology Data Radiology results: report reviewed, image reviewed X-ray of the chest is negative for acute disease. - Medical Decision Making Differential diagnosis, including but not limited to: Coronary artery disease, GERD, gastritis, hiatal hernia, pneumonia, costochondritis Assessment and plan: 74-year-old female, who is not currently tachycardic, tachy pneic or hypoxic, who denies DVT and pulmonary embolism is been using, who is low risk by [place] emergency area, with equal pulses in the upper and lower extremities, no pulsatile abdominal mass, not especially hypertensive, x-ray of the chest shows unremarkable mediastinum, unlikely to be aortic disease, who is moderate risk for major adverse cardiac event as per heart score, EKG abnormal, but not consistent with a STEMI, chest pain-free at this time. Admission is recommended for accelerated cardiac risk ratification, and cardiac monitoring. Discussed this plan of care with patient, who is amenable to hospitalization for cardiac stress testing and risk ratification. Her history, physical, and EKG findings were discussed with cardiology on-call, Dr. Brittany Aldana, as well as hospital medicine, Dr Selena Fischer, who indicated that patient did not require emergent catheterization, but did/meet criteria for hospitalization for cardiac risk ratification, and the aforementioned hospital physician had accepted the patient to the medical service for accelerated cardiac risk ratification. Critical care attestation.: If time is entered above; I have spent that time in minutes in the direct care of this critically ill patient, excluding procedure time. ED Disposition Clinical Impression: Abnormal EKG, Renal insufficiency, History of chest pain Disposition: OP ADMIT IP TO THIS HOSP Is pt being admited?: Yes Does the pt Need Aspirin: No Condition: Good
[2020-01-27 20:19] LABS: INR 1.02 (0.87-1.13)
[2020-01-27] MEDS ORDERED: FAMOTIDINE 20 MG TAB ONE (23:20)
[2020-01-27] MEDS ORDERED: ASPIRIN 325 MG TAB ONE (23:20)
--- NOTE | 2020-01-27 23:51 | History and Physical Report ---
History of Present Illness Date of examination: 01/27/20 Date of admission: 01/27/20 20:36 Chief complaint: Chest pain since a.m. History of present illness: 73-year-old female with history of hypertension, type 2 diabetes, coronary artery disease and hyperlipidemia comes in for substernal chest pain since morning. More so for the last few days. No vomiting. Exacerbated by exertion. Relieved by rest. No diarrhea or chest pain is about 5 on a scale of 1-10. Dull and intermittent nature. No radiation. No diaphoresis. No shortness of breath. No exposure to coronavirus no fever. - Past Medical History Hx Hypertension: Yes (took antihypertensives this morning) Hx Diabetes: Yes Hx Renal Disease: Yes (CKD) Hx Arthritis: Yes - Surgical History Cholecystectomy: Yes Appendectomy: Yes - Social History Smoking Status: Never Smoker Review of Systems ROS: Stated complaint: CHEST PAIN Other details as noted in HPI Constitutional: denies: diaphoresis Eyes: denies: vision change ENT: denies: epistaxis Respiratory: denies: cough Cardiovascular: chest pain Gastrointestinal: abdominal pain. denies: nausea, vomiting, hematemesis, melena, hematochezia Genitourinary: denies: dysuria Musculoskeletal: back pain Neurological: denies: weakness Hematological/Lymphatic: denies: easy bleeding Medications and Allergies Allergies Allergy/AdvReac Type Severity Reaction Status Date / Time propoxyphene [From Darvon] Allergy Vomiting Verified 09/16/19 07:12 Home Medications Medication Instructions Recorded Confirmed Last Taken Type Aspirin [Aspirin BABY CHEW TAB] 81 mg PO QDAY 09/16/19 01/27/20 1 Week Ago History ~09/09/19 Cholecalciferol (Vitamin D3) 1,000 unit PO QDAY 09/16/19 01/27/20 1 Week Ago History [Vitamin D3 2,000 UNIT CAP] ~09/09/19 Empagliflozin [Jardiance] 25 mg PO DAILY 09/16/19 01/27/20 09/16/19 History Ezetimibe [Zetia] 10 mg PO DAILY 09/16/19 01/27/20 09/15/19 History Glimepiride [Amaryl] 4 mg PO BID 09/16/19 01/27/20 09/16/19 History ISOSORBIDE MONOnitrate [Imdur ER] 30 mg PO DAILY 09/16/19 01/27/20 09/16/19 History Losartan Potassium 100 mg PO DAILY 09/16/19 01/27/20 09/16/19 History Metoprolol Xl [Metoprolol 50 mg PO QDAY 09/16/19 01/27/20 09/15/19 History SUCCINATE ER TAB] Simvastatin 40 mg PO QHS 09/16/19 01/27/20 09/15/19 History Triamterene/Hydrochlorothiazid 1 each PO DAILY 09/16/19 01/27/20 09/15/19 History [Dyazide 37.5-25 Capsule] cloNIDine [Catapres] 0.2 mg PO DAILY 09/16/19 01/27/20 09/15/19 History Active Meds: Active Medications Nitroglycerin (Nitrostat) 0.4 mg SL .Q5MIN PRN PRN Reason: Chest Pain Exam - Constitutional Vitals: Temp Pulse Resp BP Pulse Ox 97.8 F 74 13 127/71 97 01/27/20 18:54 01/27/20 22:30 01/27/20 22:30 01/27/20 22:30 01/27/20 22:30 General appearance: Present: no acute distress, well-nourished - EENT Eyes: Present: PERRL ENT: hearing intact, clear oral mucosa - Neck Neck: Present: supple, normal ROM - Respiratory Respiratory effort: normal Respiratory: bilateral: CTA - Cardiovascular Heart rate: 78 Rhythm: regular Heart Sounds: Present: S1 & S2. Absent: rub, click - Extremities Extremities: no ischemia, pulses intact, pulses symmetrical, No edema Peripheral Pulses: within normal limits - Abdominal General gastrointestinal: Present: soft, non-tender, non-distended, normal bowel sounds Female genitourinary: Present: normal - Integumentary Integumentary: Present: clear, warm, dry - Musculoskeletal Musculoskeletal: gait normal, strength equal bilaterally - Psychiatric Psychiatric: appropriate mood/affect, intact judgment & insight - Neurologic Neurologic: CNII-XII intact, moves all extremities HEART Score - HEART Score History: Moderately suspicious EKG: Non-specific Age: > 65 Risk factors: 1-2 risk factors Troponin: Troponin T < 0.010 ng/mL (0.00-0.029) 01/27/20 19:05 Troponin: < normal limit HEART Score: 5 - Critical Actions Critical Actions: 4-6 pts:12-16.6% risk of adverse cardiac event. Should be admitted Results - Labs CBC & Chem 7: 01/28/20 05:22 01/27/20 19:05 Labs: Laboratory Last Values WBC 9.7 K/mm3 (4.5-11.0) 01/27/20 19:05 RBC 4.68 M/mm3 (3.65-5.03) 01/27/20 19:05 Hgb 12.3 gm/dl (10.1-14.3) 01/27/20 19:05 Hct 37.1 % (30.3-42.9) 01/27/20 19:05 MCV 79 fl (79-97) 01/27/20 19:05 MCH 26 pg (28-32) L 01/27/20 19:05 MCHC 33 % (30-34) 01/27/20 19:05 RDW 15.2 % (13.2-15.2) 01/27/20 19:05 Plt Count 175 K/mm3 (140-440) 01/27/20 19:05 Lymph % (Auto) 16.3 % (13.4-35.0) 01/27/20 19:05 [place] % (Auto) 10.2 % (0.0-7.3) H 01/27/20 19:05 Eos % (Auto) 1.3 % (0.0-4.3) 01/27/20 19:05 Baso % (Auto) 1.0 % (0.0-1.8) 01/27/20 19:05 Lymph # (Auto) 1.6 K/mm3 (1.2-5.4) 01/27/20 19:05 [place] # (Auto) 1.0 K/mm3 (0.0-0.8) H 01/27/20 19:05 Eos # (Auto) 0.1 K/mm3 (0.0-0.4) 01/27/20 19:05 Baso # (Auto) 0.1 K/mm3 (0.0-0.1) 01/27/20 19:05 Seg Neutrophils % 71.2 % (40.0-70.0) H 01/27/20 19:05 Seg Neutrophils # 6.9 K/mm3 (1.8-7.7) 01/27/20 19:05 PT 13.5 Sec. (12.2-14.9) 01/27/20 20:00 INR 1.02 (0.87-1.13) 01/27/20 20:00 Sodium 136 mmol/L (137-145) L 01/27/20 19:05 Potassium 4.7 mmol/L (3.6-5.0) 01/27/20 19:05 Chloride 100.0 mmol/L (98-107) 01/27/20 19:05 Carbon Dioxide 21 mmol/L (22-30) L 01/27/20 19:05 Anion Gap 20 mmol/L 01/27/20 19:05 BUN 33 mg/dL (7-17) H 01/27/20 19:05 Creatinine 2.1 mg/dL (0.6-1.2) H 01/27/20 19:05 Estimated GFR 28 ml/min 01/27/20 19:05 BUN/Creatinine Ratio 16 % 01/27/20 19:05 Glucose 181 mg/dL (65-100) H 01/27/20 19:05 Calcium 9.3 mg/dL (8.4-10.2) 01/27/20 19:05 Total Bilirubin 0.40 mg/dL (0.1-1.2) 01/27/20 19:05 AST 11 units/L (5-40) 01/27/20 19:05 ALT 7 units/L (7-56) 01/27/20 19:05 Alkaline Phosphatase 56 units/L (35-129) 01/27/20 19:05 Troponin T < 0.010 ng/mL (0.00-0.029) 01/27/20 19:05 Total Protein 7.3 g/dL (6.3-8.2) 01/27/20 19:05 Albumin 3.5 g/dL (3.9-5) L 01/27/20 19:05 Albumin/Globulin Ratio 0.9 % 01/27/20 19:05 Short CBC 01/27/20 01/28/20 Range/Units 19:05 05:22 WBC 9.7 10.3 (4.5-11.0) K/mm3 Hgb 12.3 12.6 (10.1-14.3) gm/dl Hct 37.1 38.5 (30.3-42.9) % Plt Count 175 171 (140-440) K/mm3 BMP 01/27/20 19:05 Sodium 136 L Potassium 4.7 Chloride 100.0 Carbon Dioxide 21 L BUN 33 H Creatinine 2.1 H Glucose 181 H Calcium 9.3 Cardiac Enzymes 01/27/20 01/27/20 01/28/20 Range/Units 19:05 23:38 05:22 Troponin T < 0.010 < 0.010 < 0.010 (0.00-0.029) ng/mL Liver Function 01/27/20 Range/Units 19:05 Total Bilirubin 0.40 (0.1-1.2) mg/dL AST 11 (5-40) units/L ALT 7 (7-56) units/L Alkaline Phosphatase 56 (35-129) units/L Albumin 3.5 L (3.9-5) g/dL - Imaging and Cardiology EKG: report reviewed (Normal sinus rhythm no acute ST-T wave changes) Chest x-ray: report reviewed (No acute findings) [place]/IV: IV Catheter Type [Left Forearm INT / Saline Lock ] Assessment and Plan Advance Directives: Yes (Full code) VTE prophylaxis?: Chemical Plan of care discussed with patient/family: Yes - Patient Problems (1) Acute coronary syndrome Current Visit: Yes Status: Acute Plan to address problem: Patient has chest pain on exertion Consistent with acute coronary syndrome First troponin is normal We will get Lexiscan in the morning Differential diagnosis of costochondritis and GERD (2) CKD (chronic kidney disease) stage 3, GFR 30-59 ml/min Current Visit: No Status: Chronic Plan to address problem: Follow-up with nephrology Nephrology consult requested 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 Patient had renal cell carcinoma on the left side and is status post cryoablation (3) HTN (hypertension) Current Visit: No Status: Chronic Qualifiers: Hypertension type: essential hypertension Qualified Code(s): I10 - Essential (primary) hypertension Plan to address problem: Continue antihypertensives (4) T2DM (type 2 diabetes mellitus) Current Visit: Yes Status: Chronic Qualifiers: Diabetes mellitus residential insulin use: unspecified intermediate teacher insulin use status Plan to address problem: Continue oral hypoglycemics and coverage Check hemoglobin A1c (5) Coronary artery disease Current Visit: Yes Status: Chronic Qualifiers: Coronary Disease-Associated Artery/Lesion type: [place] artery [place] vs. transplanted heart: [place] heart Plan to address problem: Continue aspirin and isosorbide mononitrate (6) Hyperlipidemia Current Visit: Yes Status: Chronic Qualifiers: Hyperlipidemia type: mixed hyperlipidemia Qualified Code(s): E78.2 - Mixed hyperlipidemia Plan to address problem: Continue statins (7) Obesity hypoventilation syndrome Current Visit: No Status: Chronic Plan to address problem: CPAP as necessary (8) Renal cell carcinoma Current Visit: No Status: Chronic Qualifiers: Laterality: left Qualified Code(s): C64.2 - Malignant neoplasm of left kidney, except renal pelvis Plan to address problem: Patient had cryoablation on September 16, 2019 of the renal cell carcinoma Dr. Lucas to be consulted (9) DVT prophylaxis Current Visit: Yes Status: Acute Plan to address problem: On heparin and GI prophylaxis
[2020-01-27] MEDS ORDERED: HYDROmorphone 1 MG/1 ML INJ IV PRN (23:54)
[2020-01-27] MEDS ORDERED: ONDANSETRON 4 MG/2 ML INJ IV PRN (23:54)
[2020-01-27] MEDS ORDERED: oxyCODONE /ACETAMINOPHEN 5-325MG TAB PO PRN (23:54)
[2020-01-27] MEDS ORDERED: ACETAMINOPHEN 325 MG TAB PO PRN (23:54)
[2020-01-28 06:55] LABS: Basophils % (Auto) 0.4 % (0.0-1.8); Eosinophils # (Auto) 0.1 K/mm3 (0.0-0.4); Eosinophils % (Auto) 1.4 % (0.0-4.3); Hematocrit 38.5 % (30.3-42.9); Hemoglobin 12.6 gm/dl (10.1-14.3); Lymphocytes % (Auto) 19.8 % (13.4-35.0); Mean Corpuscular HGB Conc 33 % (30-34); Mean Corpuscular Volume 80 fl (79-97); Monocytes # (Auto) 0.9 K/mm3 (0.0-0.8); Monocytes % (Auto) 9.1 % (0.0-7.3); Platelet Count 171 K/mm3 (140-440); Red Blood Count 4.79 M/mm3 (3.65-5.03); Red Cell Distribution Width 15.5 % (13.2-15.2)
[2020-01-28 07:17] LABS: Albumin 3.8 g/dL (3.9-5); Calcium 9.6 mg/dL (8.4-10.2)
[2020-01-28] MEDS ORDERED: SODIUM CHLORIDE 0.9% 1000 ML 1,000 ML IV ONE (07:27)
[2020-01-28] MEDS: GLIMEPIRIDE 4 MG TAB PO SCH ×2 (08:00→17:20)
[2020-01-28] MEDS: CHOLECALCIFEROL (VIT D3) 1000 UNIT (25 mcg) TAB PO SCH ×2 (10:00→17:20)
[2020-01-28] MEDS: EZETIMIBE 10 MG TAB PO SCH ×2 (10:00→17:19)
[2020-01-28] MEDS ORDERED: TRIAMTERENE PO SCH (10:00)
[2020-01-28] MEDS: METOPROLOL SUCCINATE XL 50 MG TAB PO SCH (10:00)
[2020-01-28] MEDS: LOSARTAN 50 MG TAB PO SCH ×2 (10:00→17:20)
[2020-01-28] MEDS: ASPIRIN 81 MG TAB CHEW PO SCH ×2 (10:00→17:19)
[2020-01-28] MEDS ORDERED: HYDROCHLOROTHIAZID PO SCH (10:00)
[2020-01-28] MEDS: TRIAMTER/HCTZ 37.5-25 MG TAB PO SCH ×2 (10:00→17:20)
[2020-01-28] MEDS ORDERED: NON-FORMULARY EACH (Empagliflozin [Jardiance] 25 MG) PO SCH (10:00)
[2020-01-28] MEDS ORDERED: [UNRECOGNIZED DRUG - OTHER] PO SCH (10:00)
[2020-01-28] MEDS ORDERED: CHOLECALCIFEROL 1000 UNIT PO SCH (10:00)
[2020-01-28] MEDS: cloNIDine 0.2 MG TAB PO SCH ×2 (10:00→17:19)
[2020-01-28] MEDS ORDERED: NON-FORMULARY EACH (Losartan Potassium [Losartan Potassium] 100 MG) PO SCH (10:00)
[2020-01-28] MEDS ORDERED: SODIUM CHLORIDE 0.9% 500 ML 500 ML IV SCH (11:00)
--- NOTE | 2020-01-28 11:00 | Discharge Summary ---
Providers - Providers Date of Admission: 01/27/20 20:36 Date of discharge: 01/29/20 Attending physician: JUSTIN FOREMAN 01/27/20 19:58 Consult to Physician [CONS] Urgent Comment: Consulting Provider: URSZULA MENDEZ Physician Instructions: Reason For Exam: cp abnormal ekg 01/28/20 07:26 Consult to Physician [CONS] Routine Comment: Consulting Provider: SUYAPA ESQUIVEL Physician Instructions: Reason For Exam: CKD Primary care physician: TRIPLE DRUM OPERATOR Hospitalization Reason for admission: cp Condition: Good Hospital course: 73-year-old female with history of hypertension, type 2 diabetes, coronary artery disease and hyperlipidemia comes in for substernal chest pain the morning and a few days prior to admission no vomiting. Exacerbated by exertion. Relieved by rest. No diarrhea or chest pain is about 5 on a scale of 1-10. Dull and intermittent nature. No radiation. No diaphoresis. No shortness of breath. The patient was admitted with diagnosis of chest pain and chronic kidney disease. Patient has a baseline creatinine of 1.8 seen in September 2019. Lexiscan MPI stress test done 05/2019 showed mold to mod perfusion defects of medium size in anteroapical wall, defect in apical segment is reversible, EF normal. TTE done 05/2019 showed EF 55-60%, trace TR and MR. Cardiology saw pt in consultation and opted for LHC. LHC showed no acute findings and Cardiology reported pt can d/c with f/u as an OP for Cr check on Monday. D/C time 35 min Disposition: TO HOME OR SELFCARE - Discharge Diagnoses (1) Coronary artery disease Status: Chronic Qualifiers: Coronary Disease-Associated Artery/Lesion type: [place] artery [place] vs. transplanted heart: [place] heart (2) Hyperlipidemia Status: Chronic Qualifiers: Hyperlipidemia type: mixed hyperlipidemia Qualified Code(s): E78.2 - Mixed hyperlipidemia (3) T2DM (type 2 diabetes mellitus) Status: Chronic Qualifiers: Diabetes mellitus feedlot manager insulin use: unspecified [facility] insulin use st [facility]us (4) Diabetes Status: Chronic (5) CKD (chronic kidney disease) stage 3, GFR 30-59 ml/min Status: Chronic (6) HTN (hypertension) Status: Chronic Qualifiers: Hypertension type: essential hypertension Qualified Code(s): I10 - Essential (primary) hypertension (7) Obesity hypoventilation syndrome Status: Chronic (8) GERD (gastroesophageal reflux disease) Status: Acute Core Measure Documentation - Palliative Care Palliative Care/ Comfort Measures: Not Applicable - Core Measures Any of the following diagnoses?: none Exam - Constitutional Vitals: Temp Pulse Resp BP Pulse Ox 99.4 F 63 18 141/48 96 01/28/20 08:38 01/28/20 08:38 01/28/20 08:38 01/28/20 08:38 01/28/20 08:38 General appearance: Present: no acute distress, well-nourished - EENT Eyes: Present: PERRL ENT: hearing intact, clear oral mucosa - Neck Neck: Present: supple, normal ROM - Respiratory Respiratory effort: normal Respiratory: bilateral: CTA - Cardiovascular Heart Sounds: Present: S1 & S2. Absent: rub, click - Extremities Extremities: pulses symmetrical, No edema Peripheral Pulses: within normal limits - Abdominal General gastrointestinal: Present: soft, non-tender, non-distended, normal bowel sounds Female genitourinary: Present: normal - Integumentary Integumentary: Present: clear, warm, dry - Musculoskeletal Musculoskeletal: gait normal, strength equal bilaterally - Psychiatric Psychiatric: appropriate mood/affect, intact judgment & insight - Neurologic Neurologic: CNII-XII intact, moves all extremities Plan Activity: advance as tolerated Weight Bearing Status: Weight Bear as Tolerated Additional Instructions: F/U with Dr. Heaton or Deisy on Monday to have Creatinine check with BMP Follow up with: PRIMARY MD RODRIGUE [Primary Care Provider] - 3-5 Days CHAUNCEY ROY MD [Staff Physician] - 7 Days FELIPA HEATON MD [Staff Physician] - 7 Days Prescriptions: Glimepiride [Amaryl] 4 mg PO BID #60 Aspirin [Aspirin BABY CHEW TAB] 81 mg PO QDAY #30 cloNIDine [Catapres] 0.2 mg PO DAILY #30 Triamterene/Hydrochlorothiazid [Dyazide 37.5-25 Capsule] 1 each PO DAILY #30 cap ISOSORBIDE MONOnitrate [Imdur ER] 30 mg PO DAILY #30 Empagliflozin [Jardiance] 25 mg PO DAILY #30 Losartan Potassium 100 mg PO DAILY #30 Metoprolol Xl [Metoprolol SUCCINATE ER TAB] 50 mg PO QDAY #30 oxyCODONE /ACETAMINOPHEN [Percocet 5/325 mg] 1 tab PO Q6H PRN #12 tablet PRN Reason: Pain, Moderate (4-6) Pantoprazole [Protonix] 40 mg PO QDAY #30 tablet Simvastatin 40 mg PO QHS #30 Cholecalciferol (Vitamin D3) [Vitamin D3 2,000 UNIT CAP] 1,000 unit PO QDAY #30 cap Ezetimibe [Zetia] 10 mg PO DAILY #30
--- NOTE | 2020-01-28 13:35 | Consultation ---
History of Present Illness Consult date: 01/28/20 Requesting physician: MARIAMA MARTINEZ Consult reason: chest pain History of present illness: The pt is a 74 YO female with a past medical history of HTN, DM, HLP, obesity, abnormal stress test. She is followed in our office by Dr. Hines. She presented with c/o chest pain for approx 3 days prior to arrival. She describes her chest pain as an intermittent substernal pain which radiates into the right side of her chest. There are no clear aggravating or alleviating factors. She has also been experiencing exertional dyspnea for the past several weeks. She denies any palpitations, n/v, diaphoresis, dizziness or syncope. Lexiscan MPI stress test done 05/2019 showed mold to mod perfusion defects of medium size in anteroapical wall, defect in apical segment is reversible, EF normal. tte done 05/2019 showed EF 55-60%, trace TR and MR. Past History Past Medical History: other (as per HPI) Medications and Allergies Allergies Allergy/AdvReac Type Severity Reaction Status Date / Time propoxyphene [From Darvon] Allergy Vomiting Verified 09/16/19 07:12 Home Medications Medication Instructions Recorded Confirmed Last Taken Type Aspirin [Aspirin BABY CHEW TAB] 81 mg PO QDAY #30 01/28/20 Unknown Rx Cholecalciferol (Vitamin D3) 1,000 unit PO QDAY #30 cap 01/28/20 Unknown Rx [Vitamin D3 2,000 UNIT CAP] Empagliflozin [Jardiance] 25 mg PO DAILY #30 01/28/20 Unknown Rx Ezetimibe [Zetia] 10 mg PO DAILY #30 01/28/20 Unknown Rx Glimepiride [Amaryl] 4 mg PO BID #60 01/28/20 Unknown Rx ISOSORBIDE MONOnitrate [Imdur ER] 30 mg PO DAILY #30 01/28/20 Unknown Rx Losartan Potassium 100 mg PO DAILY #30 01/28/20 Unknown Rx Metoprolol Xl [Metoprolol 50 mg PO QDAY #30 01/28/20 Unknown Rx SUCCINATE ER TAB] Pantoprazole [Protonix] 40 mg PO QDAY #30 tablet 01/28/20 Unknown Rx Simvastatin 40 mg PO QHS #30 01/28/20 Unknown Rx Triamterene/Hydrochlorothiazid 1 each PO DAILY #30 cap 01/28/20 Unknown Rx [Dyazide 37.5-25 Capsule] cloNIDine [Catapres] 0.2 mg PO DAILY #30 01/28/20 Unknown Rx oxyCODONE /ACETAMINOPHEN [Percocet 1 tab PO Q6H PRN #12 tablet 01/28/20 Unknown Rx 5/325 mg] Active Meds: Active Medications Acetaminophen (Tylenol) 650 mg PO Q4H PRN PRN Reason: Pain MILD(1-3)/Fever >100.5/REEDER Aspirin (Baby Aspirin) 81 mg PO QDAY [facility] Cholecalciferol (Vitamin D3) 1,000 unit PO DAILY JANIA Clonidine HCl (Catapres) 0.2 mg PO DAILY [facility] Ezetimibe (Zetia) 10 mg PO DAILY JANIA Glimepiride (Amaryl) 4 mg PO BIDDIAB [facility] Heparin Sodium (Porcine) (Heparin) 5,000 unit SUB-Q Q12HR [facility] Hydromorphone HCl (Dilaudid) 0.5 mg IV Q3H PRN PRN Reason: Pain , Severe (7-10) Sodium Chloride (Nacl 0.9% 500 Ml) 500 mls @ 50 mls/hr IV DIRECT JANIA Stop: 01/28/20 20:59 Isosorbide Mononitrate (Imdur) 30 mg PO DAILY [facility] Losartan Potassium (Cozaar) 100 mg PO QDAY [facility] Metoprolol Succinate (Metoprolol Xl) 50 mg PO QDAY [facility] Miscellaneous Medication (Empagliflozin [Jardiance]) 25 mg PO DAILY [facility] Nitroglycerin (Nitrostat) 0.4 mg SL .Q5MIN PRN PRN Reason: Chest Pain Ondansetron HCl (Zofran) 4 mg IV Q8H PRN PRN Reason: Nausea And Vomiting Oxycodone/Acetaminophen (Percocet 5/325) 1 tab PO Q6H PRN PRN Reason: Pain, Moderate (4-6) Pravastatin Sodium (Pravachol) 80 mg PO QHS [facility] Sodium Chloride (Sodium Chloride Flush Syringe 10 Ml) 10 ml IV BID [facility] Sodium Chloride (Sodium Chloride Flush Syringe 10 Ml) 10 ml IV PRN PRN PRN Reason: LINE FLUSH Triamterene/HCTZ (Maxzide-25) 1 each PO DAILY [facility] Review of Systems Constitutional: no weight loss, no weight gain, no fever, no chills, no sweats Ears, nose, mouth and throat: no ear pain, no nose pain, no sinus pressure, no sinus pain Cardiovascular: chest pain, dyspnea on exertion, no orthopnea, no palpitations, no rapid/irregular heart beat, no edema, no syncope, no lightheadedness, no leg edema Respiratory: no cough, no congestion, no wheezing, no pain on inspiration Gastrointestinal: no abdominal pain, no nausea, no vomiting, no diarrhea, no constipation, no change in bowel habits Genitourinary Female: no pelvic pain, no flank pain, no dysuria, no urinary frequency, no urgency Musculoskeletal: no neck stiffness, no neck pain, no shooting arm pain, no arm numbness/tingling, no low back pain, no shooting leg pain Integumentary: no rash, no pruritis, no redness, no sores, no wounds Neurological: no head injury, no paralysis, no weakness, no parathesias, no numbness, no tingling, no seizures, no syncope Psychiatric: no anxiety Endocrine: no cold intolerance, no heat intolerance Hematologic/Lymphatic: no easy bruising Allergic/Immunologic: no urticaria Physical Examination Vital Signs Temp Pulse Resp BP Pulse Ox 97.8 F 70 20 142/67 100 01/27/20 18:54 01/27/20 18:54 01/27/20 18:54 01/27/20 18:54 01/27/20 18:54 General appearance: no acute distress HEENT: Positive: PERRL, Normocephaly, Mucus Membranes Moist Neck: Positive: neck supple, trachea midline Cardiac: Positive: Reg Rate and Rhythm, S1/S2 Lungs: Positive: Decreased Breath Sounds Neuro: Positive: Grossly Intact Abdomen: Negative: Tender Skin: Negative: Rash Musculoskeletal: No Pain Extremities: Absent: edema Results 01/28/20 05:22 01/28/20 05:22 Cardiac Enzymes 01/27/20 01/28/20 Range/Units 19:05 05:22 AST 11 11 (5-40) units/L Coagulation 01/27/20 Range/Units 20:00 PT 13.5 (12.2-14.9) Sec. INR 1.02 (0.87-1.13) CBC 01/27/20 01/28/20 Range/Units 19:05 05:22 WBC 9.7 10.3 (4.5-11.0) K/mm3 RBC 4.68 4.79 (3.65-5.03) M/mm3 Hgb 12.3 12.6 (10.1-14.3) gm/dl Hct 37.1 38.5 (30.3-42.9) % Plt Count 175 171 (140-440) K/mm3 Lymph # (Auto) 1.6 2.0 (1.2-5.4) K/mm3 [place] # (Auto) 1.0 H 0.9 H (0.0-0.8) K/mm3 Eos # (Auto) 0.1 0.1 (0.0-0.4) K/mm3 Baso # (Auto) 0.1 0.0 (0.0-0.1) K/mm3 Comprehensive Metabolic Panel 01/27/20 01/28/20 Range/Units 19:05 05:22 Sodium 136 L 138 (137-145) mmol/L Potassium 4.7 4.7 (3.6-5.0) mmol/L Chloride 100.0 100.3 (98-107) mmol/L Carbon Dioxide 21 L 21 L (22-30) mmol/L BUN 33 H 31 H (7-17) mg/dL Creatinine 2.1 H 1.8 H (0.6-1.2) mg/dL Glucose 181 H 143 H (65-100) mg/dL Calcium 9.3 9.6 (8.4-10.2) mg/dL AST 11 11 (5-40) units/L ALT 7 7 (7-56) units/L Alkaline Phosphatase 56 59 (35-129) units/L Total Protein 7.3 7.5 (6.3-8.2) g/dL Albumin 3.5 L 3.8 L (3.9-5) g/dL - Imaging and Cardiology Echo: report reviewed (05/2019 showed EF 55-60%, trace TR and MR. ) EKG: report reviewed, image reviewed EKG interpretations - Telemetry EKG Rhythm: Sinus Rhythm - EKG Sinus rhythms and dysrhythmias: sinus rhythm Assessment and Plan Lexiscan MPI stress test done 05/2019 showed mold to mod perfusion defects of medium size in anteroapical wall, defect in apical segment is reversible, EF normal. tte done 05/2019 showed EF 55-60%, trace TR and MR. AMI r/o. Agree with present cardiac management. Coronary angiography recommended for definitive diagnosis in setting of recurrent chest pain, exertional dyspnea and abnormal stress test. Indications, potential risks and benefits of LHC reviewed with pt and she is agreeable to proceed with LHC in AM. NPO after MN. The patient has been seen in conjunction with Dr. Kelly Snell who agrees with the assessment and choi of care. - Patient Problems (1) Chest pain Current Visit: Yes Status: Acute (2) Abnormal stress test Current Visit: Yes Status: Chronic (3) HTN (hypertension) Current Visit: Yes Status: Chronic Qualifiers: Hypertension type: essential hypertension Qualified Code(s): I10 - Essential (primary) hypertension (4) Hyperlipidemia Current Visit: Yes Status: Chronic Qualifiers: Hyperlipidemia type: mixed hyperlipidemia Qualified Code(s): E78.2 - Mixed hyperlipidemia (5) Diabetes Current Visit: Yes Status: Chronic
[2020-01-28 14:46] LABS: Calcium 9.6 mg/dL (8.4-10.2)
[2020-01-28] MEDS: HEPARIN 5,000 UNIT/1 ML VIAL SUB-Q SCH ×2 (17:20→22:04)
[2020-01-28] MEDS ORDERED: PRAVASTATIN 80 MG TAB PO SCH (22:00)
[2020-01-28] MEDS ORDERED: NON-FORMULARY EACH (Simvastatin [Simvastatin] 40 MG) PO SCH (22:00)
[2020-01-29 05:02] LABS: Basophils # (Auto) 0.1 K/mm3 (0.0-0.1); Eosinophils # (Auto) 0.1 K/mm3 (0.0-0.4); Eosinophils % (Auto) 1.7 % (0.0-4.3); Hematocrit 38.2 % (30.3-42.9); Hemoglobin 12.4 gm/dl (10.1-14.3); Lymphocytes # (Auto) 1.6 K/mm3 (1.2-5.4); Lymphocytes % (Auto) 20.2 % (13.4-35.0); Mean Corpuscular HGB Conc 32 % (30-34); Mean Corpuscular Volume 79 fl (79-97); Monocytes # (Auto) 0.8 K/mm3 (0.0-0.8); Monocytes % (Auto) 10.2 % (0.0-7.3); Platelet Count 190 K/mm3 (140-440); Red Blood Count 4.82 M/mm3 (3.65-5.03); Red Cell Distribution Width 15.2 % (13.2-15.2)
[2020-01-29 05:10] LABS: INR 1.09 (0.87-1.13)
[2020-01-29 05:12] LABS: Calcium 9.5 mg/dL (8.4-10.2)
[2020-01-29] MEDS: GLIMEPIRIDE 4 MG TAB PO SCH (08:00)
--- NOTE | 2020-01-29 09:22 | Progress Note ---
Assessment and Plan Assessment and plan: Chest pain Lexiscan MPI stress test done 05/2019 showed mold to mod perfusion defects of medium size in anteroapical wall, defect in apical segment is reversible, EF normal. tte done 05/2019 showed EF 55-60%, trace TR and MR. Cardiology plans for cardiac catheterization in a.m. Abnormal stress test As above HTN (hypertension) Continue antihypertensive medication Hyperlipidemia Continue statin Diabetes mellitus type II Accu-Cheks and sliding scale insulin - Patient Problems (1) Coronary artery disease Current Visit: Yes Status: Chronic Qualifiers: Coronary Disease-Associated Artery/Lesion type: [place] artery [place] vs. transplanted heart: [place] heart (2) Hyperlipidemia Current Visit: Yes Status: Chronic Qualifiers: Hyperlipidemia type: mixed hyperlipidemia Qualified Code(s): E78.2 - Mixed hyperlipidemia (3) T2DM (type 2 diabetes mellitus) Current Visit: Yes Status: Chronic Qualifiers: Diabetes mellitus fci insulin use: unspecified fci insulin use status (4) Diabetes Current Visit: Yes Status: Chronic (5) CKD (chronic kidney disease) stage 3, GFR 30-59 ml/min Current Visit: No Status: Chronic (6) HTN (hypertension) Current Visit: Yes Status: Chronic Qualifiers: Hypertension type: essential hypertension Qualified Code(s): I10 - Essential (primary) hypertension (7) Obesity hypoventilation syndrome Current Visit: No Status: Chronic (8) GERD (gastroesophageal reflux disease) Current Visit: Yes Status: Acute History Interval history: No new issues overnight. Hospitalist Physical - Constitutional Vitals: Temp Pulse Resp BP Pulse Ox 98.0 F 72 20 137/62 94 01/29/20 07:37 01/29/20 07:37 01/29/20 07:37 01/29/20 07:37 01/29/20 07:37 General appearance: Present: no acute distress - EENT Eyes: Present: PERRL, EOM intact ENT: hearing intact, clear oral mucosa, dentition normal - Neck Neck: Present: supple, normal ROM - Respiratory Respiratory effort: normal Respiratory: bilateral: CTA - Cardiovascular Rhythm: regular Heart Sounds: Present: S1 & S2. Absent: gallop, rub - Extremities Extremities: no ischemia, No edema, Full ROM - Abdominal General gastrointestinal: soft, non-tender, non-distended, normal bowel sounds - Integumentary Integumentary: Present: clear, warm, dry - Neurologic Neurologic: CNII-XII intact, moves all extremities HEART Score - HEART Score EKG: Non-specific Age: > 65 Risk factors: 1-2 risk factors Troponin: Troponin T < 0.010 ng/mL (0.00-0.029) 01/28/20 05:22 Troponin: < normal limit - Critical Actions Critical Actions: 4-6 pts:12-16.6% risk of adverse cardiac event. Should be admitted Results - Labs CBC & Chem 7: 01/29/20 04:39 01/29/20 04:39 Labs: Laboratory Last Values WBC 7.9 K/mm3 (4.5-11.0) 01/29/20 04:39 RBC 4.82 M/mm3 (3.65-5.03) 01/29/20 04:39 Hgb 12.4 gm/dl (10.1-14.3) 01/29/20 04:39 Hct 38.2 % (30.3-42.9) 01/29/20 04:39 MCV 79 fl (79-97) 01/29/20 04:39 MCH 26 pg (28-32) L 01/29/20 04:39 MCHC 32 % (30-34) 01/29/20 04:39 RDW 15.2 % (13.2-15.2) 01/29/20 04:39 Plt Count 190 K/mm3 (140-440) 01/29/20 04:39 Lymph % (Auto) 20.2 % (13.4-35.0) 01/29/20 04:39 [place] % (Auto) 10.2 % (0.0-7.3) H 01/29/20 04:39 Eos % (Auto) 1.7 % (0.0-4.3) 01/29/20 04:39 Baso % (Auto) 1.0 % (0.0-1.8) 01/29/20 04:39 Lymph # (Auto) 1.6 K/mm3 (1.2-5.4) 01/29/20 04:39 [place] # (Auto) 0.8 K/mm3 (0.0-0.8) 01/29/20 04:39 Eos # (Auto) 0.1 K/mm3 (0.0-0.4) 01/29/20 04:39 Baso # (Auto) 0.1 K/mm3 (0.0-0.1) 01/29/20 04:39 Seg Neutrophils % 66.9 % (40.0-70.0) 01/29/20 04:39 Seg Neutrophils # 5.3 K/mm3 (1.8-7.7) 01/29/20 04:39 PT 14.2 Sec. (12.2-14.9) 01/29/20 04:39 INR 1.09 (0.87-1.13) 01/29/20 04:39 Sodium 136 mmol/L (137-145) L 01/29/20 04:39 Potassium 4.5 mmol/L (3.6-5.0) 01/29/20 04:39 Chloride 99.4 mmol/L (98-107) 01/29/20 04:39 Carbon Dioxide 22 mmol/L (22-30) 01/29/20 04:39 Anion Gap 19 mmol/L 01/29/20 04:39 BUN 31 mg/dL (7-17) H 01/29/20 04:39 Creatinine 1.7 mg/dL (0.6-1.2) H 01/29/20 04:39 Estimated GFR 36 ml/min 01/29/20 04:39 BUN/Creatinine Ratio 18 % 01/29/20 04:39 Glucose 205 mg/dL (65-100) H 01/29/20 04:39 POC Glucose 86 (70-105) 01/28/20 16:04 Hemoglobin A1c 8.8 % (4-6) H 01/28/20 05:22 Calcium 9.5 mg/dL (8.4-10.2) 01/29/20 04:39 Total Bilirubin 0.60 mg/dL (0.1-1.2) 01/28/20 05:22 AST 11 units/L (5-40) 01/28/20 05:22 ALT 7 units/L (7-56) 01/28/20 05:22 Alkaline Phosphatase 59 units/L (35-129) 01/28/20 05:22 Troponin T < 0.010 ng/mL (0.00-0.029) 01/28/20 05:22 Total Protein 7.5 g/dL (6.3-8.2) 01/28/20 05:22 Albumin 3.8 g/dL (3.9-5) L 01/28/20 05:22 Albumin/Globulin Ratio 1.0 % 01/28/20 05:22 [place]/IV: Voiding Method Toilet IV Catheter Type [Left Forearm INT / Saline Lock ] Active Medications - Current Medications Current Medications: Generic Name Dose Route Start Last Admin Trade Name Freq PRN Reason Stop Dose Admin Acetaminophen 650 mg 01/27/20 23:54 Tylenol PO Q4H PRN Pain MILD(1-3)/Fever >100.5/REEDER Aspirin 81 mg 01/28/20 10:00 01/28/20 17:19 Baby Aspirin PO 81 mg QDAY JANIA Administration Cholecalciferol 1,000 unit 01/28/20 10:00 01/28/20 17:20 Vitamin D3 PO 1,000 unit DAILY JANIA Administration Clonidine HCl 0.2 mg 01/28/20 10:00 01/28/20 17:19 Catapres PO 0.2 mg DAILY JANIA Administration Ezetimibe 10 mg 01/28/20 10:00 01/28/20 17:19 Zetia PO 10 mg DAILY JANIA Administration Glimepiride 4 mg 01/28/20 08:00 01/28/20 17:20 Amaryl PO 4 mg BIDDIAB [facility] Administration Heparin Sodium (Porcine) 5,000 unit 01/28/20 10:00 01/28/20 22:04 Heparin SUB-Q 5,000 unit Q12HR JANIA Administration Hydromorphone HCl 0.5 mg 01/27/20 23:54 Dilaudid IV Q3H PRN Pain , Severe (7-10) Isosorbide Mononitrate 30 mg 01/28/20 10:00 01/28/20 17:19 Imdur PO 30 mg DAILY [facility] Administration Losartan Potassium 100 mg 01/28/20 10:00 01/28/20 17:20 Cozaar PO 100 mg QDAY [facility] Administration Metoprolol Succinate 50 mg 01/28/20 10:00 01/28/20 10:00 Metoprolol Xl PO Not Given QDAY [facility] Miscellaneous Medication 25 mg 01/28/20 10:00 Empagliflozin [Jardiance] PO DAILY [facility] Nitroglycerin 0.4 mg 01/27/20 19:58 Nitrostat SL .Q5MIN PRN Chest Pain Ondansetron HCl 4 mg 01/27/20 23:54 Zofran IV Q8H PRN Nausea And Vomiting Oxycodone/Acetaminophen 1 tab 01/27/20 23:54 Percocet 5/325 PO Q6H PRN Pain, Moderate (4-6) Pravastatin Sodium 80 mg 01/28/20 22:00 01/28/20 22:04 Pravachol PO 80 mg QHS JANIA Administration Sodium Chloride 10 ml 01/28/20 10:00 01/29/20 03:44 Sodium Chloride Flush Syringe 10 Ml IV Not Given BID JANIA Sodium Chloride 10 ml 01/27/20 23:54 Sodium Chloride Flush Syringe 10 Ml IV PRN PRN LINE FLUSH Triamterene/HCTZ 1 each 01/28/20 10:00 01/28/20 17:20 Maxzide-25 PO 1 each DAILY JANIA Administration Nutrition/Malnutrition Assess - Dietary Evaluation Nutrition/Malnutrition Findings: Nutrition Notes Start: 01/28/20 15:53 Freq: Status: Active Protocol: Document 01/28/20 15:53 JANINE (Rec: 01/28/20 16:09 JANINE [id number]) Co-Sign 01/28/20 15:53 LM Nutrition Notes Need for Assessment generated from: wool mixer Initial or Follow up Assessment Current Diagnosis CKD(stage I-IV),Coronary Artery Disease,Diabetes, Hypertension,Hyperlipidemia Other Pertinent Diagnosis Renal cell carcinoma Current Diet Cardiac Labs/Tests BUN 29 Cr 1.6 Pertinent Medications Reviewed Height 5 ft 6 in Weight 106 kg Usual Body Weight 104 kg [place] Body Weight (kg) 59.09 BMI 37.7 Weight change and time frame Pt complained of losing weight but wt recorded does not reflect wt changes. Weight Status Obese Subjective/Other Information Consulted for Hx difficulty chewing, nutrition support. Per pt, pt has no nutritional support hx and has painful swallowing at times. Unable to report if it is with certain foods. Reported painful swallowing not interfering with intakes. Pt eats one meal /day at lunch time. Ongoing for >1 year. Burn Absent Trauma Absent Current % PO Negligible Minimum of two criteria No physical signs of malnutrition #1 Nutrition Diagnosis Inadequate oral intake Etiology epigastric pain As Evidenced by Signs and Symptoms pt reported no intakes since Thursday 01/25. Is patient on ventilator? No Is Patient Ambulatory and/or Out of Bed Yes REE-([facility]-ambulatory/OOB) [ 2056.275 [id number]] Kcal/Kg value to use for calculation 16 Approximate Energy Requirements Using 1696 kcal/Kg Calculation Used for Recommendations Kcal/kg Additional Notes Protein 0.8-1g/kg AdBW 82.55kg : 66-83g Fluid 1ml/kcal Nutrition Intervention Change Diet Order: Cardiac with Consistent CHO Goal #1 Pt will meet at least 75% of energy and protein needs Anticipated Discharge Needs: Renal diet without dialysis, low protein, low salt, consistent CHO Follow-Up By: 01/30/20 Additional Comments f/u intakes and renal labs
--- NOTE | 2020-01-29 09:26 | Progress Note ---
Assessment and Plan Assessment and plan: Chest pain Lexiscan MPI stress test done 05/2019 showed mold to mod perfusion defects of medium size in anteroapical wall, defect in apical segment is reversible, EF normal. tte done 05/2019 showed EF 55-60%, trace TR and MR. Cardiology plans for cardiac catheterization in a.m. Abnormal stress test As above HTN (hypertension) Continue antihypertensive medication Hyperlipidemia Continue statin Diabetes mellitus type II Accu-Cheks and sliding scale insulin 01/29/2020. Patient for cardiac catheterization today. Follow-up creatinine post catheterization given history of CKD. Nephrology consulted given history of CKD. Continue IV fluid hydration and avoid MAURISIO/ARB. - Patient Problems (1) Coronary artery disease Current Visit: Yes Status: Chronic Qualifiers: Coronary Disease-Associated Artery/Lesion type: [place] artery [place] vs. transplanted heart: [place] heart (2) Hyperlipidemia Current Visit: Yes Status: Chronic Qualifiers: Hyperlipidemia type: mixed hyperlipidemia Qualified Code(s): E78.2 - Mixed hyperlipidemia (3) T2DM (type 2 diabetes mellitus) Current Visit: Yes Status: Chronic Qualifiers: Diabetes mellitus correction insulin use: unspecified joint terminal attack controller insulin use status (4) Diabetes Current Visit: Yes Status: Chronic (5) CKD (chronic kidney disease) stage 3, GFR 30-59 ml/min Current Visit: No Status: Chronic (6) HTN (hypertension) Current Visit: Yes Status: Chronic Qualifiers: Hypertension type: essential hypertension Qualified Code(s): I10 - Essential (primary) hypertension (7) Obesity hypoventilation syndrome Current Visit: No Status: Chronic (8) GERD (gastroesophageal reflux disease) Current Visit: Yes Status: Acute History Interval history: No new issues overnight. Hospitalist Physical - Constitutional Vitals: Temp Pulse Resp BP Pulse Ox 98.0 F 72 20 137/62 94 01/29/20 07:37 01/29/20 07:37 01/29/20 07:37 01/29/20 07:37 01/29/20 07:37 General appearance: Present: no acute distress, well-nourished - EENT Eyes: Present: PERRL, EOM intact ENT: hearing intact, clear oral mucosa, dentition normal - Neck Neck: Present: supple, normal ROM - Respiratory Respiratory effort: normal Respiratory: bilateral: CTA - Cardiovascular Rhythm: regular Heart Sounds: Present: S1 & S2. Absent: gallop, rub - Extremities Extremities: no ischemia, No edema, Full ROM - Abdominal General gastrointestinal: soft, non-tender, non-distended, normal bowel sounds - Integumentary Integumentary: Present: clear, warm, dry - Neurologic Neurologic: CNII-XII intact, moves all extremities HEART Score - HEART Score EKG: Non-specific Age: > 65 Risk factors: 1-2 risk factors Troponin: Troponin T < 0.010 ng/mL (0.00-0.029) 01/28/20 05:22 Troponin: < normal limit - Critical Actions Critical Actions: 4-6 pts:12-16.6% risk of adverse cardiac event. Should be admitted Results - Labs CBC & Chem 7: 01/29/20 04:39 01/29/20 04:39 Labs: Laboratory Last Values WBC 7.9 K/mm3 (4.5-11.0) 01/29/20 04:39 RBC 4.82 M/mm3 (3.65-5.03) 01/29/20 04:39 Hgb 12.4 gm/dl (10.1-14.3) 01/29/20 04:39 Hct 38.2 % (30.3-42.9) 01/29/20 04:39 MCV 79 fl (79-97) 01/29/20 04:39 MCH 26 pg (28-32) L 01/29/20 04:39 MCHC 32 % (30-34) 01/29/20 04:39 RDW 15.2 % (13.2-15.2) 01/29/20 04:39 Plt Count 190 K/mm3 (140-440) 01/29/20 04:39 Lymph % (Auto) 20.2 % (13.4-35.0) 01/29/20 04:39 Gordon % (Auto) 10.2 % (0.0-7.3) H 01/29/20 04:39 Eos % (Auto) 1.7 % (0.0-4.3) 01/29/20 04:39 Baso % (Auto) 1.0 % (0.0-1.8) 01/29/20 04:39 Lymph # (Auto) 1.6 K/mm3 (1.2-5.4) 01/29/20 04:39 Gordon # (Auto) 0.8 K/mm3 (0.0-0.8) 01/29/20 04:39 Eos # (Auto) 0.1 K/mm3 (0.0-0.4) 01/29/20 04:39 Baso # (Auto) 0.1 K/mm3 (0.0-0.1) 01/29/20 04:39 Seg Neutrophils % 66.9 % (40.0-70.0) 01/29/20 04:39 Seg Neutrophils # 5.3 K/mm3 (1.8-7.7) 01/29/20 04:39 PT 14.2 Sec. (12.2-14.9) 01/29/20 04:39 INR 1.09 (0.87-1.13) 01/29/20 04:39 Sodium 136 mmol/L (137-145) L 01/29/20 04:39 Potassium 4.5 mmol/L (3.6-5.0) 01/29/20 04:39 Chloride 99.4 mmol/L (98-107) 01/29/20 04:39 Carbon Dioxide 22 mmol/L (22-30) 01/29/20 04:39 Anion Gap 19 mmol/L 01/29/20 04:39 BUN 31 mg/dL (7-17) H 01/29/20 04:39 Creatinine 1.7 mg/dL (0.6-1.2) H 01/29/20 04:39 Estimated GFR 36 ml/min 01/29/20 04:39 BUN/Creatinine Ratio 18 % 01/29/20 04:39 Glucose 205 mg/dL (65-100) H 01/29/20 04:39 POC Glucose 86 (70-105) 01/28/20 16:04 Hemoglobin A1c 8.8 % (4-6) H 01/28/20 05:22 Calcium 9.5 mg/dL (8.4-10.2) 01/29/20 04:39 Total Bilirubin 0.60 mg/dL (0.1-1.2) 01/28/20 05:22 AST 11 units/L (5-40) 01/28/20 05:22 ALT 7 units/L (7-56) 01/28/20 05:22 Alkaline Phosphatase 59 units/L (35-129) 01/28/20 05:22 Troponin T < 0.010 ng/mL (0.00-0.029) 01/28/20 05:22 Total Protein 7.5 g/dL (6.3-8.2) 01/28/20 05:22 Albumin 3.8 g/dL (3.9-5) L 01/28/20 05:22 Albumin/Globulin Ratio 1.0 % 01/28/20 05:22 [place]gowan/IV: Voiding Method Toilet IV Catheter Type [Left Forearm INT / Saline Lock ] Active Medications - Current Medications Current Medications: Generic Name Dose Route Start Last Admin Trade Name Freq PRN Reason Stop Dose Admin Acetaminophen 650 mg 01/27/20 23:54 Tylenol PO Q4H PRN Pain MILD(1-3)/Fever >100.5/REEDER Aspirin 81 mg 01/28/20 10:00 01/28/20 17:19 Baby Aspirin PO 81 mg QDAY JANIA Administration Cholecalciferol 1,000 unit 01/28/20 10:00 01/28/20 17:20 Vitamin D3 PO 1,000 unit DAILY JANIA Administration Clonidine HCl 0.2 mg 01/28/20 10:00 01/28/20 17:19 Catapres PO 0.2 mg DAILY JANIA Administration Ezetimibe 10 mg 01/28/20 10:00 01/28/20 17:19 Zetia PO 10 mg DAILY JANIA Administration Glimepiride 4 mg 01/28/20 08:00 01/28/20 17:20 Amaryl PO 4 mg BIDDIAB JANIA Administration Heparin Sodium (Porcine) 5,000 unit 01/28/20 10:00 01/28/20 22:04 Heparin SUB-Q 5,000 unit Q12HR JANIA Administration Hydromorphone HCl 0.5 mg 01/27/20 23:54 Dilaudid IV Q3H PRN Pain , Severe (7-10) Isosorbide Mononitrate 30 mg 01/28/20 10:00 01/28/20 17:19 Imdur PO 30 mg DAILY JANIA Administration Losartan Potassium 100 mg 01/28/20 10:00 01/28/20 17:20 Cozaar PO 100 mg QDAY JANIA Administration Metoprolol Succinate 50 mg 01/28/20 10:00 01/28/20 10:00 Metoprolol Xl PO Not Given QDAY [facility] Miscellaneous Medication 25 mg 10/13/20 10:00 Empagliflozin [Jardiance] PO DAILY JANIA Nitroglycerin 0.4 mg 01/27/20 19:58 Nitrostat SL .Q5MIN PRN Chest Pain Ondansetron HCl 4 mg 01/27/20 23:54 Zofran IV Q8H PRN Nausea And Vomiting Oxycodone/Acetaminophen 1 tab 01/27/20 23:54 Percocet 5/325 PO Q6H PRN Pain, Moderate (4-6) Pravastatin Sodium 80 mg 01/28/20 22:00 01/28/20 22:04 Pravachol PO 80 mg QHS JANIA Administration Sodium Chloride 10 ml 01/28/20 10:00 01/29/20 03:44 Sodium Chloride Flush Syringe 10 Ml IV Not Given BID JANIA Sodium Chloride 10 ml 01/27/20 23:54 Sodium Chloride Flush Syringe 10 Ml IV PRN PRN LINE FLUSH Triamterene/HCTZ 1 each 01/28/20 10:00 01/28/20 17:20 Maxzide-25 PO 1 each DAILY JANIA Administration Nutrition/Malnutrition Assess - Dietary Evaluation Nutrition/Malnutrition Findings: Nutrition Notes Start: 01/28/20 15:53 Freq: Status: Active Protocol: Document 01/28/20 15:53 JANINE (Rec: 01/28/20 16:09 JANINE [id number]) Co-Sign 01/28/20 15:53 LM Nutrition Notes Need for Assessment generated from: underwriting support specialist Initial or Follow up Assessment Current Diagnosis CKD(stage I-IV),Coronary Artery Disease,Diabetes, Hypertension,Hyperlipidemia Other Pertinent Diagnosis Renal cell carcinoma Current Diet Cardiac Labs/Tests BUN 29 Cr 1.6 Pertinent Medications Reviewed Height 5 ft 6 in Weight 106 kg Usual Body Weight 104 kg [place] Body Weight (kg) 59.09 BMI 37.7 Weight change and time frame Pt complained of losing weight but wt recorded does not reflect wt changes. Weight Status Obese Subjective/Other Information Consulted for Hx difficulty chewing, nutrition support. Per pt, pt has no nutritional support hx and has painful swallowing at times. Unable to report if it is with certain foods. Reported painful swallowing not interfering with intakes. Pt eats one meal /day at lunch time. Ongoing for >1 year. Burn Absent Trauma Absent Current % PO Negligible Minimum of two criteria No physical signs of malnutrition #1 Nutrition Diagnosis Inadequate oral intake Etiology epigastric pain As Evidenced by Signs and Symptoms pt reported no intakes since Thursday 01/25. Is patient on ventilator? No Is Patient Ambulatory and/or Out of Bed Yes REE-([facility]-ambulatory/OOB) [ 1036.275 NUTR.[id number]] Kcal/Kg value to use for calculation 16 Approximate Energy Requirements Using 1696 kcal/Kg Calculation Used for Recommendations Kcal/kg Additional Notes Protein 0.8-1g/kg AdBW 82.55kg : 66-83g Fluid 1ml/kcal Nutrition Intervention Change Diet Order: Cardiac with Consistent CHO Goal #1 Pt will meet at least 75% of energy and protein needs Anticipated Discharge Needs: Renal diet without dialysis, low protein, low salt, consistent CHO Follow-Up By: 01/30/20 Additional Comments f/u intakes and renal labs
[2020-01-29] MEDS ORDERED: HEPARIN/NS 5000 UNIT/500ML 1,000 ML IR ONE (09:27)
[2020-01-29] MEDS ORDERED: SODIUM CHLORIDE 0.9% 500 ML 500 ML ONE (09:49)
[2020-01-29] MEDS: HEPARIN 5,000 UNIT/1 ML VIAL SUB-Q SCH (10:00)
[2020-01-29] MEDS ORDERED: ASPIRIN 81 MG TAB CHEW ONE (10:01)
[2020-01-29] MEDS: ASPIRIN 81 MG TAB CHEW PO SCH (10:04)
--- NOTE | 2020-01-29 10:20 | Progress Note ---
Assessment and Plan Impression: * NARCISO on ckd--baseline cr 1,8 * chest pain * CAD * HTN * type 2 DM Plan: * cr back to baseline * gentle ivfs * stop bharath/arb and jardiance prior to [facility] * ok to proceed from renal standpoint * follow daily lytes * avoid nephrotoxins Subjective Date of service: 01/29/20 Principal diagnosis: narciso on ckd Interval history: resting in bed today Objective - Exam Narrative Exam: - General Limitations: No Limitations General appearance: alert, in no apparent distress - Head Head exam: Present: atraumatic, normocephalic - Eye Eye exam: Present: normal appearance, EOMI. Absent: nystagmus - ENT ENT exam: Present: normal exam, normal orophraynx, mucous membranes moist, normal external ear exam - Neck Neck exam: Present: normal inspection, full ROM. Absent: tenderness, meningismus - Respiratory Respiratory exam: Present: normal lung sounds bilaterally. Absent: respiratory distress, wheezes, rales, rhonchi, stridor, chest wall tenderness, decreased breath sounds - Cardiovascular Cardiovascular Exam: Present: regular rate, normal rhythm, normal heart sounds. Absent: irregular rhythm, systolic murmur, diastolic murmur, rubs, gallop - GI/Abdominal GI/Abdominal exam: Present: soft. Absent: distended, tenderness, guarding, rebound, rigid, pulsatile mass - Extremities Exam Extremities exam: Present: normal inspection, full ROM, pedal edema, other (2+ pulses noted in the bilateral upper and lower extremities. There is no palpable cord. negative Homans sign. Muscular compartments are soft. The pelvis is stable.). Absent: calf tenderness - Back Exam Back exam: Present: normal inspection, full ROM. Absent: tenderness, CVA tenderness (R), CVA tenderness (L), paraspinal tenderness, vertebral tenderness - Neurological Exam Neurological exam: Present: alert, oriented X3, normal gait, other (No facial droop. Tongue midline. Extraocular movements intact bilaterally. Facial sensation intact to light touch in V1, V2, V3 distribution bilaterally. 5 and a 5 strength in 4 extremities. Sensation intact to light touch in 4 extremities.). Absent: motor sensory deficit - Psychiatric Psychiatric exam: Present: normal affect, normal mood - Skin Skin exam: Present: warm, dry, intact, normal color. Absent: rash - Vital Signs Vital signs: Vital Signs - 12hr 01/28/20 01/29/20 01/29/20 23:21 03:16 03:40 Temperature 98.4 F 98.8 F Pulse Rate 60 61 Respiratory 18 18 Rate Blood Pressure 120/57 108/38 Blood Pressure 108/51 [Right] O2 Sat by Pulse 92 96 Oximetry 01/29/20 07:37 Temperature 98.0 F Pulse Rate 72 Respiratory 20 Rate Blood Pressure 137/62 Blood Pressure [Right] O2 Sat by Pulse 94 Oximetry - Lab 01/29/20 04:39 01/29/20 04:39 Most recent lab results Calcium 9.5 mg/dL (8.4-10.2) 01/29/20 04:39 Medications & Allergies - Medications Allergies/Adverse Reactions: Allergies propoxyphene [From Darvon] Allergy (Verified 09/16/19 07:12) Vomiting Home Medications: Home Medications Medication Instructions Recorded Confirmed Last Taken Type Aspirin [Aspirin BABY CHEW TAB] 81 mg PO QDAY #30 01/28/20 Unknown Rx Cholecalciferol (Vitamin D3) 1,000 unit PO QDAY #30 cap 01/28/20 Unknown Rx [Vitamin D3 2,000 UNIT CAP] Empagliflozin [Jardiance] 25 mg PO DAILY #30 01/28/20 Unknown Rx Ezetimibe [Zetia] 10 mg PO DAILY #30 01/28/20 Unknown Rx Glimepiride [Amaryl] 4 mg PO BID #60 01/28/20 Unknown Rx ISOSORBIDE MONOnitrate [Imdur ER] 30 mg PO DAILY #30 01/28/20 Unknown Rx Losartan Potassium 100 mg PO DAILY #30 01/28/20 Unknown Rx Metoprolol Xl [Metoprolol 50 mg PO QDAY #30 01/28/20 Unknown Rx SUCCINATE ER TAB] Pantoprazole [Protonix] 40 mg PO QDAY #30 tablet 01/28/20 Unknown Rx Simvastatin 40 mg PO QHS #30 01/28/20 Unknown Rx Triamterene/Hydrochlorothiazid 1 each PO DAILY #30 cap 01/28/20 Unknown Rx [Dyazide 37.5-25 Capsule] cloNIDine [Catapres] 0.2 mg PO DAILY #30 01/28/20 Unknown Rx oxyCODONE /ACETAMINOPHEN [Percocet 1 tab PO Q6H PRN #12 tablet 01/28/20 Unknown Rx 5/325 mg] Active Medications: Generic Name Dose Route Start Last Admin Trade Name Freq PRN Reason Stop Dose Admin Acetaminophen 650 mg 01/27/20 23:54 Tylenol PO Q4H PRN Pain MILD(1-3)/Fever >100.5/REEDER Aspirin 81 mg 01/28/20 10:00 01/29/20 10:04 Baby Aspirin PO 81 mg QDAY [facility] Administration Cholecalciferol 1,000 unit 01/28/20 10:00 01/28/20 17:20 Vitamin D3 PO 1,000 unit DAILY [facility] Administration Clonidine HCl 0.2 mg 01/28/20 10:00 01/28/20 17:19 Catapres PO 0.2 mg DAILY [facility] Administration Ezetimibe 10 mg 01/28/20 10:00 01/28/20 17:19 Zetia PO 10 mg DAILY [facility] Administration Glimepiride 4 mg 01/28/20 08:00 01/28/20 17:20 Amaryl PO 4 mg BIDDIAB [facility] Administration Heparin Sodium (Porcine) 5,000 unit 01/28/20 10:00 01/28/20 22:04 Heparin SUB-Q 5,000 unit Q12HR [facility] Administration Hydromorphone HCl 0.5 mg 01/27/20 23:54 Dilaudid IV Q3H PRN Pain , Severe (7-10) Isosorbide Mononitrate 30 mg 01/28/20 10:00 01/28/20 17:19 Imdur PO 30 mg DAILY [facility] Administration Losartan Potassium 100 mg 01/28/20 10:00 01/28/20 17:20 Cozaar PO 100 mg QDAY [facility] Administration Metoprolol Succinate 50 mg 01/28/20 10:00 01/28/20 10:00 Metoprolol Xl PO Not Given QDAY [facility] Miscellaneous Medication 25 mg 01/28/20 10:00 Empagliflozin [Jardiance] PO DAILY [facility] Nitroglycerin 0.4 mg 01/27/20 19:58 Nitrostat SL .Q5MIN PRN Chest Pain Ondansetron HCl 4 mg 01/27/20 23:54 Zofran IV Q8H PRN Nausea And Vomiting Oxycodone/Acetaminophen 1 tab 01/27/20 23:54 Percocet 5/325 PO Q6H PRN Pain, Moderate (4-6) Pravastatin Sodium 80 mg 01/28/20 22:00 01/28/20 22:04 Pravachol PO 80 mg QHS JANIA Administration Sodium Chloride 10 ml 01/28/20 10:00 01/29/20 03:44 Sodium Chloride Flush Syringe 10 Ml IV Not Given BID JANIA Sodium Chloride 10 ml 01/27/20 23:54 Sodium Chloride Flush Syringe 10 Ml IV PRN PRN LINE FLUSH Triamterene/HCTZ 1 each 01/28/20 10:00 01/28/20 17:20 Maxzide-25 PO 1 each DAILY JANIA Administration
--- NOTE | 2020-01-29 10:20 | Consultation ---
History of Present Illness - Reason for Consult Consult date: 01/28/20 acute renal failure, chronic renal failure - History of Present Illness The patient was evaluated in the emergency department for symptoms described in the history of present illness. He/she was evaluated in the context of the global COVID-19 pandemic, which necessitated consideration that the patient might be at risk for infection with the virus that causes COVID-19. Institutional protocols and algorithms that pertain to the evaluation of patients at risk for COVID-19 are in a state of rapid change based on informa tion released by regulatory bodies including the CDC and federal and state organizations. These policies and algorithms were followed during the patient's care in the emergency department. Please note that these policies, procedures and recommendations changed on a rapid basis. Cardiology: [facility] cardiology Patient is a pleasant 74-year-old female, with a history of renal insufficiency, diabetes, hypertension and high cholesterol. She presents to the ER today with a complaint of intermittent substernal and epigastric burning pain, which radiates to the back, for the past few days, without vomiting, diaphoresis or exertional shortness of breath. She believes that she had a stress test within the past year, which was "negative." She denies headache, neck pain, abdominal pain, vomiting blood, defecating blood, urinary symptoms, denies COVID symptomatology, and denies DVT, pulmonary embolism risk factors. ROS: Stated complaint: CHEST PAIN Other details as noted in HPI Constitutional: denies: diaphoresis Eyes: denies: vision change ENT: denies: epistaxis Respiratory: denies: cough Cardiovascular: chest pain Gastrointestinal: abdominal pain. denies: nausea, vomiting, hematemesis, melena, hematochezia Genitourinary: denies: dysuria Musculoskeletal: back pain Neurological: denies: weakness Hematological/Lymphatic: denies: easy bleeding - Past Medical History Hx Hypertension: Yes (took antihypertensives this morning) Hx Heart Attack/AMI: No Hx Diabetes: Yes Hx Liver Disease: No Hx Renal Disease: Yes (CKD) Hx Arthritis: Yes - Surgical History Hx Cholecystectomy: Yes Hx Appendectomy: Yes - Social History Smoking Status: Never Smoker Past History Past Medical History: other (as per HPI) Medications and Allergies Allergies Allergy/AdvReac Type Severity Reaction Status Date / Time propoxyphene [From Darvon] Allergy Vomiting Verified 09/16/19 07:12 Home Medications Medication Instructions Recorded Confirmed Last Taken Type Aspirin [Aspirin BABY CHEW TAB] 81 mg PO QDAY #30 01/28/20 Unknown Rx Cholecalciferol (Vitamin D3) 1,000 unit PO QDAY #30 cap 01/28/20 Unknown Rx [Vitamin D3 2,000 UNIT CAP] Empagliflozin [Jardiance] 25 mg PO DAILY #30 01/28/20 Unknown Rx Ezetimibe [Zetia] 10 mg PO DAILY #30 01/28/20 Unknown Rx Glimepiride [Amaryl] 4 mg PO BID #60 01/28/20 Unknown Rx ISOSORBIDE MONOnitrate [Imdur ER] 30 mg PO DAILY #30 01/28/20 Unknown Rx Losartan Potassium 100 mg PO DAILY #30 01/28/20 Unknown Rx Metoprolol Xl [Metoprolol 50 mg PO QDAY #30 01/28/20 Unknown Rx SUCCINATE ER TAB] Pantoprazole [Protonix] 40 mg PO QDAY #30 tablet 01/28/20 Unknown Rx Simvastatin 40 mg PO QHS #30 01/28/20 Unknown Rx Triamterene/Hydrochlorothiazid 1 each PO DAILY #30 cap 01/28/20 Unknown Rx [Dyazide 37.5-25 Capsule] cloNIDine [Catapres] 0.2 mg PO DAILY #30 01/28/20 Unknown Rx oxyCODONE /ACETAMINOPHEN [Percocet 1 tab PO Q6H PRN #12 tablet 01/28/20 Unknown Rx 5/325 mg] Active Meds: Active Medications Acetaminophen (Tylenol) 650 mg PO Q4H PRN PRN Reason: Pain MILD(1-3)/Fever >100.5/REEDER Aspirin (Baby Aspirin) 81 mg PO QDAY [facility] Last Admin: 01/29/20 10:04 Dose: 81 mg Documented by: Cholecalciferol (Vitamin D3) 1,000 unit PO DAILY [facility] Last Admin: 01/28/20 17:20 Dose: 1,000 unit Documented by: Clonidine HCl (Catapres) 0.2 mg PO DAILY [facility] Last Admin: 01/28/20 17:19 Dose: 0.2 mg Documented by: Ezetimibe (Zetia) 10 mg PO DAILY [facility] Last Admin: 01/28/20 17:19 Dose: 10 mg Documented by: Glimepiride (Amaryl) 4 mg PO BIDDIAB [facility] Last Admin: 01/28/20 17:20 Dose: 4 mg Documented by: Heparin Sodium (Porcine) (Heparin) 5,000 unit SUB-Q Q12HR [facility] Last Admin: 01/28/20 22:04 Dose: 5,000 unit Documented by: Hydromorphone HCl (Dilaudid) 0.5 mg IV Q3H PRN PRN Reason: Pain , Severe (7-10) Isosorbide Mononitrate (Imdur) 30 mg PO DAILY [facility] Last Admin: 01/28/20 17:19 Dose: 30 mg Documented by: Losartan Potassium (Cozaar) 100 mg PO QDAY [facility] Last Admin: 01/28/20 17:20 Dose: 100 mg Documented by: Metoprolol Succinate (Metoprolol Xl) 50 mg PO QDAY [facility] Last Admin: 01/28/20 10:00 Dose: Not Given Documented by: Miscellaneous Medication (Empagliflozin [Jardiance]) 25 mg PO DAILY [facility] Nitroglycerin (Nitrostat) 0.4 mg SL .Q5MIN PRN PRN Reason: Chest Pain Ondansetron HCl (Zofran) 4 mg IV Q8H PRN PRN Reason: Nausea And Vomiting Oxycodone/Acetaminophen (Percocet 5/325) 1 tab PO Q6H PRN PRN Reason: Pain, Moderate (4-6) Pravastatin Sodium (Pravachol) 80 mg PO QHS [facility] Last Admin: 01/28/20 22:04 Dose: 80 mg Documented by: Sodium Chloride (Sodium Chloride Flush Syringe 10 Ml) 10 ml IV BID [facility] Last Admin: 01/29/20 03:44 Dose: Not Given Documented by: Sodium Chloride (Sodium Chloride Flush Syringe 10 Ml) 10 ml IV PRN PRN PRN Reason: LINE FLUSH Triamterene/HCTZ (Maxzide-25) 1 each PO DAILY [facility] Last Admin: 01/28/20 17:20 Dose: 1 each Documented by: Exam - Vital Signs Vital signs: Vital Signs Temp Pulse Resp BP Pulse Ox 97.8 F 70 20 142/67 100 01/27/20 18:54 01/27/20 18:54 01/27/20 18:54 01/27/20 18:54 01/27/20 18:54 - Physical Exam Narrative exam: - General Limitations: No Limitations General appearance: alert, in no apparent distress - Head Head exam: Present: atraumatic, normocephalic - Eye Eye exam: Present: normal appearance, EOMI. Absent: nystagmus - ENT ENT exam: Present: normal exam, normal orophraynx, mucous membranes moist, normal external ear exam - Neck Neck exam: Present: normal inspection, full ROM. Absent: tenderness, meningismus - Respiratory Respiratory exam: Present: normal lung sounds bilaterally. Absent: respiratory distress, wheezes, rales, rhonchi, stridor, chest wall tenderness, decreased breath sounds - Cardiovascular Cardiovascular Exam: Present: regular rate, normal rhythm, normal heart sounds. Absent: irregular rhythm, systolic murmur, diastolic murmur, rubs, gallop - GI/Abdominal GI/Abdominal exam: Present: soft. Absent: distended, tenderness, guarding, rebound, rigid, pulsatile mass - Extremities Exam Extremities exam: Present: normal inspection, full ROM, pedal edema, other (2+ pulses noted in the bilateral upper and lower extremities. There is no palpable cord. negative Homans sign. Muscular compartments are soft. The pelvis is stable.). Absent: calf tenderness - Back Exam Back exam: Present: normal inspection, full ROM. Absent: tenderness, CVA tenderness (R), CVA tenderness (L), paraspinal tenderness, vertebral tenderness - Neurological Exam Neurological exam: Present: alert, oriented X3, normal gait, other (No facial droop. Tongue midline. Extraocular movements intact bilaterally. Facial sensation intact to light touch in V1, V2, V3 distribution bilaterally. 5 and a 5 strength in 4 extremities. Sensation intact to light touch in 4 extremities.). Absent: motor sensory deficit - Psychiatric Psychiatric exam: Present: normal affect, normal mood - Skin Skin exam: Present: warm, dry, intact, normal color. Absent: rash Results - Lab Results 01/29/20 04:39 01/29/20 04:39 Most recent lab results Calcium 9.5 mg/dL (8.4-10.2) 01/29/20 04:39 Assessment and Plan Impression: * NARCISO on ckd--baseline cr 1,8 * chest pain * CAD * HTN * type 2 DM Plan: * cr back to baseline * gentle ivfs * stop bharath/arb and jardiance prior to [facility] * ok to proceed from renal standpoint * follow daily lytes * avoid nephrotoxins
[2020-01-29] MEDS: cloNIDine 0.2 MG TAB PO SCH (10:22)
[2020-01-29] MEDS: CHOLECALCIFEROL (VIT D3) 1000 UNIT (25 mcg) TAB PO SCH (10:22)
[2020-01-29] MEDS: METOPROLOL SUCCINATE XL 50 MG TAB PO SCH (10:22)
[2020-01-29] MEDS: EZETIMIBE 10 MG TAB PO SCH (10:23)
[2020-01-29] MEDS: LIDOCAINE (2%) 20 MG/1 ML VIAL 20 ML MDV INFILTRATI ONE ×2 (10:28→10:38)
[2020-01-29] MEDS: MIDAZOLAM 2 MG/2 ML INJ ONE ×2 (10:28→10:36)
[2020-01-29] MEDS: VERAPAMIL 5 MG/2 ML INJ ONE ×2 (10:28→10:40)
[2020-01-29] MEDS: fentaNYL 100 MCG/2 ML INJ ONE ×2 (10:28→10:36)
[2020-01-29] MEDS: HEPARIN 10,000 UNITS/10 ML VIAL ONE ×2 (10:29→10:40)
[2020-01-29] MEDS: NITROGLYCERIN SYRINGE 3 ML ONE ×2 (10:30→10:40)
--- NOTE | 2020-01-29 10:53 | Progress Note ---
Assessment and Plan Lexiscan MPI stress test done 05/2019 showed mold to mod perfusion defects of medium size in anteroapical wall, defect in apical segment is reversible, EF normal. tte done 05/2019 showed EF 55-60%, trace TR and MRRicha Nephrology recs noted and appreciated - stop bharath/arb and jardiance prior to [facility], ok to proceed from renal standpoint. S/p LHC today which showed normal coronaries, EF 55-60%. Currently stable cardiac status. Chest pain resolved. Cont present cardiac management. Pt may discharge from cardiology standpoint following completion of post-cath order set. Follow up in our [facility] for BMP on 01/31/2020 @ 1:15PM. Follow up in our [facility] office with Dr. Hines on 02/14/2020 @ 11:15AM. The patient has been seen in conjunction with Dr. Kelly Snell who agrees with the assessment and choi of care. - Patient Problems (1) Chest pain Current Visit: Yes Status: Acute (2) Abnormal stress test Current Visit: Yes Status: Chronic (3) HTN (hypertension) Current Visit: Yes Status: Chronic Qualifiers: Hypertension type: essential hypertension Qualified Code(s): I10 - Essential (primary) hypertension (4) Hyperlipidemia Current Visit: Yes Status: Chronic Qualifiers: Hyperlipidemia type: mixed hyperlipidemia Qualified Code(s): E78.2 - Mixed hyperlipidemia (5) Diabetes Current Visit: Yes Status: Chronic (6) CKD (chronic kidney disease) Current Visit: Yes Status: Chronic Subjective Date of service: 01/29/20 Principal diagnosis: mely on ckd Interval history: pt for [facility], no current complaints. in SR on tele HR 70s. Objective Last Vital Signs Temp 98.0 F 01/29/20 07:37 Pulse 72 01/29/20 07:37 Resp 20 01/29/20 07:37 BP 137/62 01/29/20 07:37 Pulse Ox 94 01/29/20 07:37 - Physical Examination General: No Apparent Distress HEENT: Positive: PERRL, Normocephaly, Mucus Membranes Moist Neck: Positive: neck supple, trachea midline Cardiac: Positive: Reg Rate and Rhythm, S1/S2 Lungs: Positive: Decreased Breath Sounds Neuro: Positive: Grossly Intact Abdomen: Negative: Tender Skin: Negative: Rash Musculoskeletal: No Pain Extremities: Absent: edema - Labs and Meds Coagulation 01/29/20 Range/Units 04:39 PT 14.2 (12.2-14.9) Sec. INR 1.09 (0.87-1.13) CBC 01/29/20 Range/Units 04:39 WBC 7.9 (4.5-11.0) K/mm3 RBC 4.82 (3.65-5.03) M/mm3 Hgb 12.4 (10.1-14.3) gm/dl Hct 38.2 (30.3-42.9) % Plt Count 190 (140-440) K/mm3 Lymph # (Auto) 1.6 (1.2-5.4) K/mm3 Boyle # (Auto) 0.8 (0.0-0.8) K/mm3 Eos # (Auto) 0.1 (0.0-0.4) K/mm3 Baso # (Auto) 0.1 (0.0-0.1) K/mm3 Comprehensive Metabolic Panel 01/28/20 01/29/20 Range/Units 13:32 04:39 Sodium 140 136 L (137-145) mmol/L Potassium 4.4 4.5 (3.6-5.0) mmol/L Chloride 103.1 99.4 (98-107) mmol/L Carbon Dioxide 22 22 (22-30) mmol/L BUN 29 H 31 H (7-17) mg/dL Creatinine 1.6 H 1.7 H (0.6-1.2) mg/dL Glucose 90 205 H (65-100) mg/dL Calcium 9.6 9.5 (8.4-10.2) mg/dL - Imaging and Cardiology EKG: report reviewed, image reviewed Echo: report reviewed (05/2019 showed EF 55-60%, trace TR and MR. ) - Telemetry EKG Rhythm: Sinus Rhythm - EKG Sinus rhythms and dysrhythmias: sinus rhythm
[2020-01-29] MEDS ORDERED: SODIUM CHLORIDE 0.45% 1000 ML 1,000 ML IV SCH (11:00)
[2020-01-29] MEDS ORDERED: traMADol 50 MG TAB PO PRN (11:24)
[2020-01-29] MEDS ORDERED: HYDROcodone/ACETAMINOPHEN 5-325 MG TAB PO PRN (11:24)
--- NOTE | 2020-01-29 11:47 | Cardiac Catherization Report ---
CARDIAC CATHETERIZATION REFERRING PHYSICIAN: Mickey Travis MD PRIMARY EVP CHIEF EXPLORATION OFFICER: Bay Hines MD INDICATION FOR PROCEDURE: The patient is a pleasant 74-year-old -[place] female with recurrent chest pain, abnormal stress test with anterior ischemia, multiple risk factors, chronic kidney disease, creatinine lives in the 1.7 range. She has been prehydrated. Risk of contrast-induced nephropathy discussed. She elected to proceed. Informed consent obtained. PROCEDURE IN DETAIL: The patient was brought to the catheterization lab in a postabsorptive state, prepped and draped in sterile fashion. Pranav's test in the right hand was normal. A 2 mL of 2% lidocaine was used to anesthetize the right wrist. A standard 6-[place] hydrophilic sheath used to cannulate the right radial artery via modified Seldinger technique. All exchanges performed to exchange a J-tip guidewire. JL3.5 catheter used to engage the left main. No dampening or ventricularization. Cineangiography performed in multiple projections. JR4 catheter used to cross the aortic valve under fluoroscopic guidance. Left ventriculography performed in 30 LÓPEZ and 30 TURKISH projections via hand injections, catheter flushed. Manual pullback performed with continuous pressure monitoring. Catheter used to engage the right coronary. No dampening or ventricularization. Cineangiography performed in all projections. Next, catheter removed from the body of wire, sheath removed. Manual pressure used to achieve hemostasis. We used Visipaque and total contrast used was 50 mL of Visipaque. The patient remained in normal sinus rhythm throughout the procedure. No immediate complications. I directly supervised the administration of moderate sedation from 10:35 a.m. to 11:00 a.m. No immediate complications. DATA: The patient remained in normal sinus rhythm throughout the procedure. Aortic pressure is 150/70, LV pressure is 150, LVEDP of 17 mmHg. Left ventriculography reveals normal systolic performance with estimated ejection fraction of 55-60%. No evidence of aortic stenosis. CORONARY ANATOMY: This is a right dominant system. Right coronary is a moderate sized vessel, courses AV groove, no significant disease noted, ZACK 3 flow throughout. Left main without significant disease, bifurcates into left anterior descending and left circumflex. Left circumflex, moderate sized vessel, courses AV groove, no significant disease, ZACK 3 flow throughout the coronary tree. LAD is a moderate sized vessel, courses anterior intergroove, wraps around the apex, no significant disease. CONCLUSIONS: 1. No angiographic evidence of significant epicardial coronary disease in this right dominant system. 2. Normal left ventricular systolic performance, estimated ejection fraction of 55-60%. 3. No evidence of aortic stenosis. 4. Normal LVEDP. The patient is clinically stable. Watch creatinine. Continue IV fluid overnight. Risk factor modification, weight loss, diet modification. Results of the procedure were explained to the patient at length. All questions and concerns were addressed. Standard radial care. JOB# [id number] SBM/NTS
[2020-01-29] MEDS: LOSARTAN 50 MG TAB PO SCH (15:18)
[2020-01-29] MEDS: TRIAMTER/HCTZ 37.5-25 MG TAB PO SCH (15:19)
[2020-01-29 16:24] VITALS: BP 119/67
== END 2020-01-29 18:00 | disposition home or self-care (01) ==
LOC: ED 18:35 → 4A 20:36
PROVIDERS: ADMIT Internal Medicine; ATTEND Hospitalist
DX: I24.9 Acute ischemic heart disease, unspecified (principal); I12.9 Hypertensive chronic kidney disease with stage 1 through stage 4 chronic kidney disease, or unspecified chronic kidney disease; N18.30 Chronic kidney disease, stage 3 unspecified; E11.22 Type 2 diabetes mellitus with diabetic chronic kidney disease; N28.9 Disorder of kidney and ureter, unspecified; R94.31 Abnormal electrocardiogram [ECG] [EKG]; C64.2 Malignant neoplasm of left kidney, except renal pelvis; I25.10 Atherosclerotic heart disease of native coronary artery without angina pectoris; R94.39 Abnormal result of other cardiovascular function study; E78.5 Hyperlipidemia, unspecified; E66.2 Morbid (severe) obesity with alveolar hypoventilation; M19.90 Unspecified osteoarthritis, unspecified site; Z68.37 Body mass index [BMI] 37.0-37.9, adult; Z87.898 Personal history of other specified conditions; Z90.49 Acquired absence of other specified parts of digestive tract; Z79.4 Long term (current) use of insulin
CPT/HCPCS: 36415; 71046; 80048; 80053; 82962; 83036; 84484; 85025; 85610; 87641; 93005; 93458; 96372; 99285; A9270; C1894; G0378; J1644; J2250; J3010; J7040; Q9967